=== PATIENT | male | born 1990 | race Caucasian/White ===

== ENCOUNTER 2019-08-23 14:03 | Outpatient (REF) | payer OTHER, SELFPAY ==
[2019-08-23 16:58] LABS: HCT 48.1 % (40.0-50.0); HGB 16.1 g/dL (13.5-17.5); Mean Corp. HGB Concentration 33.5 g/dL (32.0-36.0); Mean Corpuscular Hemoglobin 28.8 pg (27.0-33.0); Mean Corpuscular Volume 85.9 fL (80-95); Mean Platelet Volume 10.7 fL (8.0-11.0); Platelet Count 325 x1000/uL (130-400); RBC Distribution Width 13.8 % (11.8-14.1); White Blood Cell Count 13.15 k/cumm (4.4-10.8)
[2019-08-23 17:02] LABS: ALT 131 U/L (16-63); AST 73 U/L (15-37); Albumin 4.2 g/dL (3.4-5.0); Alkaline Phosphatase 115 U/L (46-116); Anion Gap 7.1 mmol/L (3-11); BUN 13 mg/dL (7-18); Bilirubin, Total 0.5 mg/dL (0.2-1.0); CO2 29.9 mmol/L (21.0-32.0); CREATININE 1.43 mg/dL (0.70-1.30); Calcium 9.5 mg/dL (8.5-10.1); Chloride 100 mmol/L (98-107); Estimated GFR 58.07 (mL/min/1.73m2); Glucose 93 mg/dL (74-106); Potassium 4.3 mmol/L (3.5-5.1); Sodium 137 mmol/L (136-145)
== END 2019-08-23 14:23 ==
LOC: NCHCN 14:03
PROVIDERS: Visit Provider Family Medicine
DX: K76.0 Fatty (change of) liver, not elsewhere classified (principal)
CPT/HCPCS: 80053; 85027

== ENCOUNTER 2019-10-14 07:42 | Outpatient (CLI) | payer OTHER, SELFPAY ==
[2019-10-16 19:02] LABS: COVID-19 RT-PCR Result Negative ((See Note))
== END 2019-10-14 08:02 ==
PROVIDERS: PCP Family Medicine; Visit Provider Surgery
DX: Z11.59 Encounter for screening for other viral diseases (principal); Z01.818 Encounter for other preprocedural examination
CPT/HCPCS: U0003

== ENCOUNTER 2019-10-19 06:06 | Day surgery (SDC) | payer OTHER, SELFPAY ==
[2019-10-19] VITALS (12 sets, daily range): BP systolic 53–129; BP diastolic 17–86; PULSE 69–95; RESP 16–30; TEMP 36.3–36.6; O2SAT 89–100
--- NOTE | 2019-10-19 06:27 | ROE_ITS ---
Date of service: 10/19/19 Time of Service: : Operative Note Operative Note DATE OF PROCEDURE: 10/19/19 PRE-OP DIAGNOSIS: Left inguinal hernia POST-OP DIAGNOSIS: same (Direct left inguinal hernia) PROCEDURE: Left inguinal hernia repair with mesh SURGEON: Debbie Caldwell LAY OUT FORMER: Tomasa Glynn ANESTHESIA: GETA and regional ESTIMATED BLOOD LOSS: 25 PATHOLOGY: none sent COMPLICATIONS: None Patient was transported to: PACU Patient's condition: stable Implants: BARD Mesh: LOT [id number] REF [id number] EXP 2023-06-21 Indications: Curly is a 29 year old male seen today for a left inguinal hernia. He has a history of Mirza and is being referred to [facility]. He tells me that he has had mildly elevated LFTs for a while now. His hernia is starting to bother him especially when he walks for long periods of time. We discussed the anatomy of hernias as well as the repair. We went over pain control with Tylenol, ibuprofen and a nerve block. Hopefully we will not have to give him any narcotics. I explained to him that my expectation is that he will not need any pain medications but we will see how he does after surgery. With his Mirza we have to be careful about how much Tylenol he takes. Would recommend he not take more than 3 g in a 24-hour period Findings: Direct inguinal hernia and cord lipoma Procedure Description: After informed consent was obtained the patient was taken to the operating room and placed in a supine position. Monitors and SCDs were applied and a timeout was done. The patient's name, date of , procedure type, procedure site, allergies to medications, preoperative antibiotic, and DVT prophylaxis were all reviewed. Fire risk was assessed. Next anesthesia did a tap block on the left side under ultrasound guidance. Please see their separate dictation. Once anesthesia was done the abdomen was prepped and draped in a sterile surgical fashion. 1% lidocaine was injected into the dermis in the left lower quadrant. An incision was made with a 10 blade in the left lower quadrant. Dissection was done with cautery through the subcutaneous tissues and Lianna's fascia down to the external oblique fascia. The external ring was identified and the external oblique fascia was opened sharply through the external ring. The cut fascia was grasped with hemostats the cord structures were identified and a [place] drain was placed around them. The cremasteric muscle was dissected away from the cord structures using both cautery and blunt dissection. A cord lipoma was identified and removed from the cord structures using blunt dissection and removed. The ileoinguinal nerve was identified and cut. A 3 x 6 piece of mesh was then cut to size and attached to the arcuate ligament using a 2-0 Prolene double armed suture. The mesh was secured laterally and medially with a 2-0 Prolene, with a running suture. The tails of the mesh were wrapped around the cord structures effectively cinching down the internal ring. Once the mesh was secured the tissues were irrigated with some normal saline. No bleeding was identified. The external oblique fascia was re- approximated using 2-0 Vicryl running suture. The Lianna's fascia was re- approximated using interrupted 3-0 Vicryl. The dermis was re-approximated with a running 4-0 Vicryl. The skin was cleaned and dried and skin affix was applied. The patient was woken up and taken back to recovery in stable condition. There were no immediate complications. Sponge, instrument and needle counts were correct at the end of the case x2.
--- NOTE | 2019-10-19 06:30 | PDOC.DSDIS_ITS ---
Discharge Plan Disposition Patient Disposition: HOME Condition: Good Discharge Details Reason For Visit: Left inguinal hernia Attending Provider: Debbie Caldwell Primary Care Provider: Robi Guevara Home Meds and New Rx's Prescriptions: New ibuprofen 600 mg tablet 600 mg PO Q6H PRNQty: 30 RF: 0 acetaminophen [Tylenol] 325 mg tablet 650 mg PO Q6H PRNQty: 30 RF: 0 Continued Vyvanse 40 mg capsule 40 mg PO DAILY RF: 0 melatonin 10 mg capsule 20 mg PO HS PRNRF: 0 pantoprazole [Protonix] 20 mg tablet,delayed release (DR/EC) 20 mg PO DAILY RF: 0 lisinopril-hydrochlorothiazide 10-12.5 mg tablet 1 tab PO DAILY RF: 0 Discharge Instructions Instructions: Inguinal Hernia Repair (DC) Additional Instructions: Activity at Home after surgery: 1. Make sure you walk outside at least 4 times per day 2. You should be able to climb a flight of stairs 3. No driving while in pain or taking pain medications 4. No strenuous activity or heavy lifting for 4 weeks (open surgery) Diet, Nutrition, & wound healin. Avoid alcohol until after you are recovered from your surgery 2. Make sure to eat plenty of lean protein (meat, fish, eggs, cottage cheese, beans) 3. Eat a variety of fruits and vegetables. Eat plenty of high fiber foods to avoid constipation. 4. Drink plenty of liquids to stay hydrated and avoid constipation Pain Medications: 1. Alternate Tylenol 1000 mg and Ibuprofen 600 mg every 3 hours 2. If a narcotic has been prescribed take as directed only for breakthrough pain For Constipation: 1. Take Milk of Magnesia or MiraLax as needed for constipation Other: 1. You may shower daily. Do not scrub the incisions 2. Do not soak the incisions for 1 week 3. You may alternate ice and heat as needed for pain and swelling Wound Care: 1. Keep the incisions clean and dry Other Services that may have been ordered: 0 Home Health- to help with dressing changes 0 Outpatient physical therapy Please call our office if you develop: 1. Fevers >101.5 2. Nausea or Vomiting 3. Worsening pain 4. Redness and thick discharge from the wounds If after hours please call the Hospital at and ask to speak to the on-call surgeon Referrals: Debbie Caldwell MD [ [facility] STAFF PHYSICIAN] - Activity:: no lifting >20 lb x 4 weeks Shower/Bathe:: 24 hours Diet:: As Tolerated Discharge Orders Discharge Orders: Discharge Order (Routine); Ordered 10/19/19 Ordered By: Debbie Caldwell DS: Diagnosis Discharge Diagnosis (1) Left inguinal hernia: Status: Acute
[2019-10-19] MEDS: Lactated Ringers 1,000 ML 80 ML IV ×2 (06:44→08:57)
[2019-10-19] MEDS: Bupivacaine LIPOSOME/PF 133 MG/10 ML VIAL IJ (07:33)
[2019-10-19] MEDS: Bupivacaine 0.5% Pres-Free 30 ML VIAL (07:33)
[2019-10-19] MEDS: ceFAZolin 2 GM/50 ML BAG IVPB (07:41)
[2019-10-19] MEDS: Lidocaine 1% Multi-Dose 50 ML VIAL (07:45)
[2019-10-19] MEDS: ePHEDrine 50 MG/ML VIAL IVP ×3 (08:46→08:54)
[2019-10-19] MEDS: fentaNYL 100 MCG/2 ML VIAL IVP (09:15)
[2019-10-19] MEDS: Ibuprofen 600 MG TAB PO (10:43)
[2019-10-19] MEDS: oxyCODONE 5 MG TAB PO (11:44)
== END 2019-10-19 12:30 | disposition home or self-care (01) ==
PROVIDERS: PCP Family Medicine; Visit Provider Surgery
PROC: (CPT 49505; principal; 2019-10-19 07:30)
DX: K40.90 Unilateral inguinal hernia, without obstruction or gangrene, not specified as recurrent (principal); G89.18 Other acute postprocedural pain; K75.81 Nonalcoholic steatohepatitis (NASH); D17.6 Benign lipomatous neoplasm of spermatic cord
CPT/HCPCS: 49505; 76942; C1781; J0690; J1885; J2001; J2405; J2704; J3010

== ENCOUNTER 2019-11-15 01:06 | Outpatient (CLI) | payer OTHER, SELFPAY ==
[2019-11-15 09:05] LABS: Abs Immature Grans 0.07 10^3/uL (0.0-0.06); Absolute Basophil Count 0.04 10^3/uL (0.0-0.2); Absolute Lymphocyte Count 2.01 10^3/uL (1.2-3.4); Absolute Monocyte Count 0.86 10^3/uL (0.1-0.8); Basophils % 0.3; Eosinophils % 1.3; HCT 47.3 % (40.0-50.0); HGB 16.1 g/dL (13.5-17.5); Immature Grans % 0.5; Lymphocytes % 15.7; MCH 29.2 pg (27.0-33.0); MCV 85.7 fL (80-95); Monocytes % 6.7; Neutrophils % 75.5; Nucleated RBC 0 %; Platelet Count 407 10^3/uL (130-400); RBC 5.52 10^6/uL (4.36-5.78); RDW 13.3 % (11.8-14.1); RDW-SD 41.2 fL; WBC 12.78 10^3/uL (4.4-10.8)
[2019-11-15 09:07] LABS: Absolute Eosinophil Count 0.17 10^3/uL (0.0-0.7); Absolute Neutrophil Count 9.65 10^3/uL (1.2-6.7)
[2019-11-15 09:34] LABS: ALT 109 U/L (16-63); AST 55 U/L (15-37); Albumin 3.8 g/dL (3.4-5.0); Alkaline Phosphatase 126 U/L (46-116); Anion Gap 6.4 mmol/L (3-11); BUN 14 mg/dL (7-18); Bilirubin, Total 0.5 mg/dL (0.2-1.0); CO2 31.6 mmol/L (21.0-32.0); CREATININE 1.19 mg/dL (0.70-1.30); Calcium 8.6 mg/dL (8.5-10.1); Chloride 101 mmol/L (98-107); Glucose 119 mg/dL (74-106); Potassium 3.8 mmol/L (3.5-5.1); Sodium 139 mmol/L (136-145); Total Protein 7.8 g/dL (6.4-8.2)
[2019-11-15] MEDS: Normal Saline - Diluent 50 ML VIAL IV (10:36)
[2019-11-15] MEDS: Omnipaque 350 MG/ML 100 ML BTL IJ (10:37)
[2019-11-15] MEDS: Omnipaque 350 MG/ML 50 ML BTL IJ (10:37)
--- NOTE | 2019-11-15 10:38 | DI.CT_ITS ---
EXAM: CT ABDOMEN PELVIS W CLINICAL HISTORY: H/O APPENDICEAL CARCINOID.S/P APPENDECTOMY.RESTAGING EXAM,[id number] TECHNIQUE: Imaging Protocol: Axial computed tomography images with coronal and sagittal reformatted images were created and reviewed CONTRAST MATERIAL: Intravenous: Omnipaque 350 Contrast volume:100 mL Oral: Yes COMPARISON: CT ABD PELVIS WITH CONTRAST from 03/04/2017 CT ABD PELVIS WITH CONTRAST from 03/04/2017 FINDINGS: ABDOMEN: Lung Bases: There is a stable 0.7 cm left lower lobe nodule. Liver: Diffuse fatty infiltration of the liver. No measurable mass. Portal, Superior Mesenteric, and Splenic Veins: Unremarkable. Gallbladder and Biliary Tract: Status post cholecystectomy. No biliary ductal dilatation. Pancreas: Normal density, no abnormal calcifications or inflammatory process. Spleen: Normal. Adrenals: No masses seen. Kidneys: Normal size, contour and axis. 3 mm nonobstructing stone in the midpole of the left kidney. No masses seen. Abdominal Aorta: Abdominal portion non-dilated. Bowel: No obstruction or bowel wall thickening. Status post appendectomy. Peritoneal Cavity: No ascites, collection or mesenteric inflammatory response. Lymph Nodes: No abdominal or pelvic adenopathy. Bones: Unremarkable. Soft Tissues: Soft tissue thickening and subcutaneous infiltrative changes in the left inguinal regio n which may reflect prior inguinal hernia repair. Please correlate with patient's surgical history. PELVIS: Bladder: Symmetric distention, no gross wall thickening. Reproductive Organs: Unremarkable as visualized. Lymph Nodes: Within normal limits. Bones: Within normal limits. IMPRESSION: No evidence of recurrent or metastatic disease RADIATION DOSE DELIVERED: 2,225.23mGy.cm Total DLP DATA REPOSITORY: All CT scans at this facility are submitted to the National Radiology Data Registry (NRDR) Dose Index Registry (DIR) with the [employer] (ACR). RADIATION OPTIMIZATION: All CT scans at this facility use at least one of these dose optimization te chniques: automated exposure control; mA and/or kV adjustment per patient size (includes targeted exa ms where dose is matched to clinical indication); or iterative reconstruction.
[2019-11-17 11:41] LABS: Chromogranin A 72 ng/mL (<93)
== END 2019-11-15 01:26 ==
PROVIDERS: PCP Family Medicine; Visit Provider Internal Medicine Hematology & Oncology
DX: C7A.020 Malignant carcinoid tumor of the appendix (principal)
CPT/HCPCS: 80053; 74177; 85025; 86316; J3490; Q9967

== ENCOUNTER 2019-12-16 07:29 | Outpatient (REF) | payer OTHER, SELFPAY ==
[2019-12-17 12:45] LABS: COVID-19 RT-PCR Result NEGATIVE (Negative)
== END 2019-12-16 07:49 ==
LOC: LBO 07:29
PROVIDERS: PCP Family Medicine; Visit Provider Nurse Practitioner Family
DX: Z11.59 Encounter for screening for other viral diseases (principal)
CPT/HCPCS: U0003

== ENCOUNTER 2020-01-02 16:27 | Outpatient (REF) | payer OTHER, SELFPAY ==
[2020-01-07 14:26] LABS: Patient Race White; SARS-CoV-2 RNA Undetected (Undetected); SARS-CoV-2 Specimen Source Nasal
== END 2020-01-02 16:47 ==
LOC: LBO 16:27
PROVIDERS: PCP Family Medicine; Visit Provider Nurse Practitioner Family
DX: Z11.59 Encounter for screening for other viral diseases (principal)
CPT/HCPCS: U0003

== ENCOUNTER 2020-09-04 10:37 | Emergency (ER) | payer OTHER, SELFPAY ==
[2020-09-04 10:52] VITALS: BP 143/99; PULSE 87; RESP 20; TEMP 36.5; O2SAT 98
[2020-09-04] MEDS: Lactated Ringers 1,000 ML 1000 ML IV (11:10)
[2020-09-04 11:32] LABS: Abs Immature Grans 0.05 10^3/uL (0.0-0.06); Absolute Basophil Count 0.01 10^3/uL (0.0-0.2); Absolute Lymphocyte Count 0.94 10^3/uL (1.2-3.4); Absolute Monocyte Count 0.68 10^3/uL (0.1-0.8); Absolute Neutrophil Count 11.33 10^3/uL (1.2-6.7); Basophils % 0.1; HCT 48.2 % (40.0-50.0); HGB 16.3 g/dL (13.5-17.5); Immature Grans % 0.4; Lymphocytes % 7.2; MCH 29.2 pg (27.0-33.0); MCHC 33.8 % (32.0-36.0); MCV 86.4 fL (80-95); MPV 9.9 fL (8.0-11.0); Monocytes % 5.2; Neutrophils % 87.1; Nucleated RBC 0 %; Platelet Count 317 10^3/uL (130-400); RBC 5.58 10^6/uL (4.36-5.78); RDW 12.7 % (11.8-14.1); RDW-SD 39.8 fL; WBC 13.01 10^3/uL (4.4-10.8)
--- NOTE | 2020-09-04 11:42 | ED.GENADUL_ITS ---
Discharge Plan Disposition Patient Disposition: HOME Discharge Details Clinical Impression: Nausea & vomiting, Gastroparesis Primary Care Provider: Robi Guevara ED Provider: Prakash Davis Home Meds and New Rx's Prescriptions: New metoclopramide HCl [Reglan] 10 mg tablet 10 mg PO Q6H PRN (Reason: nausea and vomiting) Qty: 15 RF: 0 Continued Vyvanse 40 mg capsule 40 mg PO DAILY RF: 0 pantoprazole [Protonix] 20 mg tablet,delayed release (DR/EC) 20 mg PO DAILY RF: 0 lisinopril-hydrochlorothiazide 10-12.5 mg tablet 1 tab PO DAILY RF: 0 fluoxetine 10 mg capsule 10 mg PO DAILY RF: 0 Discharge Instructions Instructions: Acute Nausea and Vomiting (ED), Gastroparesis (ED) Additional Instructions: Please maintain a clear liquid diet today. Advance your diet slowly tomorrow to bland foods. Take Reglan as prescribed only for severe nausea. Please contact your primary care physician to arrange follow-up. Return to the ER for any worsening or new concerning symptoms. Referrals: Robi Guevara [Primary Care Provider] - Discharge Data Discharge Date/Time-TO BE ENTERED AT DEPARTURE: 09/04/20 13:59 Medical Decision Making 30-year-old male with history of gastroparesis and IBS presents with nausea and vomiting since yesterday. Unable to keep anything down. Consider electrolyte abnormalities and pancreatitis. Labs reviewed: Leukocytosis noted. Potassium is slightly low at 3.4. I will give potassium chloride 20 mEq. And patient was given LR 1 L fluid bolus and Reglan 10 mg IV and reassessed and noted to be feeling much better. Patient tolerating p.o. fluids. Plan for outpatient follow-up with PCP. I will prescribe Reglan for nausea. Disposition decision was made weighing the risks and benefits of hospitalization versus outpatient treatment, the risk for further decompensation, and the patient's wishes. The patient was stable and requested discharge. Prior to discharge, my usual and customary return precautions were reviewed with the patient - this included follow-up instructions and reason to return to the emergency department if condition worsens, does not improve as expected, or other new concerns arise. HPI General Mode of arrival: ambulatory . Date/Time Provider Initiated Documentation: 09/04/20 10:58 . Limitations to Documentation: no limitations . Information obtained by: patient . HPI Narrative: 30-year-old male with history of gastroparesis and IBS presents with nausea and vomiting since yesterday. Symptoms are severe. Constant. Unable to keep anything down. No associated abdominal pain. No associated fever. Symptoms consistent with prior episodes of gastroparesis. Notes Jerolina has worked in the past. Related Data Home Medications Medication Instructions Recorded Confirmed lisdexamfetamine 40 mg capsule 40 mg PO DAILY 09/20/19 09/04/20 lisinopril 10 1 tab PO DAILY 09/20/19 09/04/20 mg-hydrochlorothiazide 12.5 mg tablet pantoprazole 20 mg tablet,delayed 20 mg PO DAILY 09/20/19 09/04/20 release fluoxetine 10 mg PO DAILY 09/04/20 09/04/20 metoclopramide HCl [Reglan] 10 mg PO Q6H PRN #15 tab 09/04/20 Previous Rx's Medication Instructions Recorded metoclopramide HCl [Reglan] 10 mg PO Q6H PRN #15 tab 09/04/20 Allergies Allergy/AdvReac Type Severity Reaction Status Date / Time metoprolol AdvReac Severe severe Verified 09/04/20 10:55 body aches ondansetron HCl AdvReac Severe Nausea Verified 09/04/20 10:55 [From Zofran (as hydrochloride)] emtricitabine [From Truvada] AdvReac Intermediate N/V x2 Verified 09/04/20 10:55 days; migraine hydrocodone bitartrate AdvReac Intermediate Nausea Verified 09/04/20 10:55 [From Vicodin] oxycodone HCl [From Percocet] AdvReac Intermediate Nausea Verified 09/04/20 10:55 tenofovir [From Truvada] AdvReac Intermediate N/V x2 Verified 09/04/20 10:55 days; migraine General Stated Complaint: Nausea/Vomit/Diar AILYN: 3 Review of Systems Constitutional Constitutional: Denies fever(s) Gastrointestinal Gastrointestinal: Reports as per [facility] Medical History (Updated 09/04/20 @ 13:45 by Prakash Davis MD) ADHD 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 Cameron Carpal tunnel syndrome on both sides (10/03/15) s/p b/l release which resolved issue Depression with anxiety Long history; Fluoxetine; Wellbutrin (helpful 2012), Buspar; episodes of panice with Clonazepam RX'ed long-term historically and uses very seldom per medical records Gastroparesis RX Metoclopremide Heartburn Long-term Pantoprazole, switched to safer H2 rishabh 03/2019 Hypertension Lisinopril 10mg (used to also be on Chlorthalidone 50mg daily) IBS (irritable bowel syndrome) Dx'ed ~2011; Colestid helpful for diarrhea; Levsin & Bentyl used 2014 Left inguinal hernia Migraine without aura and without status migrainosus, not intractable (10/03/15) Nonalcoholic fatty liver disease LIZBETH (obstructive sleep apnea) ran out of supplies for CPAP Renal insufficiency Shingles Surgical History (Updated 11/01/19 @ 09:11 by Debbie Caldwell MD) H/O carpal tunnel repair (~02/2015) B/L H/O esophagogastroduodenoscopy (~02/2013) +Mild gastritis, normal mucosa History of appendectomy (~06/2014) Open History of cholecystectomy (~02/2007) History of colonoscopy (~02/2013) ~2013--normal mucosa, but +internal hemorrhoids History of colonoscopy (~10/2017) Dr. Alva in [place]--recalled for age 49; normal appearing mucosa all biopsies (random) benign History of tonsillectomy (~02/2012) S/P inguinal hernia repair using synthetic patch (~10/19/19) left Family History Father , Black lung on certificate; also with significant addiction Substance abuse Anxiety Depression Hypertension Paternal Grandfather Diabetes Alcohol abuse Mother Anxiety Depression Hypertension Maternal Grandfather Alcohol abuse Maternal Grandmother Alcohol abuse Heart disease Pancreatic cancer Paternal Grandmother Alcohol abuse Social History Smoking/Tobacco Use Status: Never Smoking risk assessment performed?: Yes Alcohol Intake: current Alcohol Intake frequency: holidays/special occasions only Drug use: Never Substance use type: does not use Adopted: No Caregiver/Support person: No Foster care: No Household members: family Housing: house Communication Needs: None Do you need help understanding health information?: Rarely 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, [employer] Sexually active: Yes Do you think of yourself as: lesbian/ibarra/homosexual Current gender identity: male What type of physical activity do you participate in: walking Frequency: daily Seatbelt use: always Drive intox or ride w/intox driver/sales workers: No Working smoke detector in home: Yes Fire extinguisher in home: Yes Firearms in home: No Do you feel safe at home: Yes Do you feel safe in your relationship?: Yes Exam Const General: cooperative and no acute distress HENMT Mouth: mucous membranes dry Eyes Conjunctivae: normal conjunctivae Sclera: normal sclerae Resp Auscultation: clear to auscultation bilaterally, no rales, no rhonchi and no wheezes Cardio Rate: regular rate and not tachycardic Rhythm: regular rhythm GI Palpation: soft, not firm, no guarding, no masses, not rigid and nontender Skin General skin exam: no pallor Neuro General: patient alert, patient awake, patient oriented x3 and tone normal Extrem General: no edema Psych Appearance: grossly normal Mental Status: mental status grossly normal Course Vital Signs Vital signs: Vital Signs Temperature 36.5 C 09/04/20 10:52 Pulse 87 09/04/20 10:52 Respiratory Rate 20 09/04/20 10:52 Blood Pressure 143/99 H 09/04/20 10:52 Pulse Oximetry 98 09/04/20 10:52 Temperature 36.5 C 09/04/20 10:52 Temperature Source Tympanic 09/04/20 10:52 Pulse 87 09/04/20 10:52 Respiratory Rate 20 09/04/20 10:52 Respiratory Effort Non-Labored 09/04/20 11:20 Blood Pressure 143/99 H 09/04/20 10:52 Blood Pressure Position Sitting 09/04/20 10:52 Pulse Oximetry 98 09/04/20 10:52 Oxygen Delivery Method Room Air 09/04/20 10:52 Oxygen Flow Rate 0 09/04/20 10:52 Pain Level 4 09/04/20 10:52 Lab/Test Results Lab/Test Results: Laboratory Tests Range/Units 09/04/20 11:15 WBC (4.4-10.8) 10^3/uL 13.01 H RBC (4.36-5.78) 10^6/uL 5.58 Hgb (13.5-17.5) g/dL 16.3 Hct (40.0-50.0) % 48.2 MCV (80-95) fL 86.4 MCH (27.0-33.0) pg 29.2 MCHC (32.0-36.0) % 33.8 RDW (11.8-14.1) % 12.7 Plt Count (130-400) 10^3/uL 317 MPV (8.0-11.0) fL 9.9 Immature Gran % 0.4 Neutrophils % 87.1 Lymphocytes % 7.2 Monocytes % 5.2 Eosinophils % 0.0 Basophils % 0.1 Nucleated RBC % % 0 Absolute Neutrophils (1.2-6.7) 10^3/uL 11.33 H Absolute Lymphocytes (1.2-3.4) 10^3/uL 0.94 L Absolute Monocytes (0.1-0.8) 10^3/uL 0.68 Absolute Eosinophils (0.0-0.7) 10^3/uL 0.00 Absolute Basophils (0.0-0.2) 10^3/uL 0.01
[2020-09-04 11:46] LABS: ALT 56 U/L (16-63); AST 34 U/L (15-37); Albumin 3.9 g/dL (3.4-5.0); Alkaline Phosphatase 122 U/L (46-116); Anion Gap 8.3 mmol/L (3-11); BUN 14 mg/dL (7-18); Bilirubin, Total 1.5 mg/dL (0.2-1.0); CO2 30.7 mmol/L (21.0-32.0); CREATININE 1.2 mg/dL (0.70-1.30); Calcium 8.9 mg/dL (8.5-10.1); Chloride 100 mmol/L (98-107); Glucose 101 mg/dL (74-106); Lipase 36 U/L (73-393); Magnesium 1.9 mg/dL (1.8-2.4); Potassium 3.4 mmol/L (3.5-5.1); Sodium 139 mmol/L (136-145); Total Protein 7.8 g/dL (6.4-8.2)
[2020-09-04] MEDS: Metoclopramide 10 MG/2 ML VIAL IVP (11:53)
[2020-09-04 12:32] VITALS: BP 136/86; PULSE 79; RESP 16; TEMP 36.7; O2SAT 98
[2020-09-04 13:33] VITALS: BP 121/83; PULSE 88; RESP 14; TEMP 36.6; O2SAT 99
[2020-09-04] MEDS: Potassium Chloride 20 MEQ TABCR PO (13:53)
[2020-09-04 13:57] VITALS: BP 121/83; PULSE 88; RESP 14; TEMP 36.6; O2SAT 99
== END 2020-09-04 13:59 | disposition home or self-care (01) ==
PROVIDERS: Emergency Provider Student in an Organized Health Care Education/Training Program; PCP Family Medicine
DX: K31.84 Gastroparesis (principal); R11.2 Nausea with vomiting, unspecified; E87.6 Hypokalemia
CPT/HCPCS: 36415; 80053; 83690; 96361; 96374; 99284; 83735; 85025; J2765

== ENCOUNTER 2020-12-18 00:22 | Outpatient (CLI) | payer OTHER, SELFPAY ==
[2020-12-18 08:07] LABS: Abs Immature Grans 0.05 10^3/uL (0.0-0.06); Absolute Basophil Count 0.05 10^3/uL (0.0-0.2); Absolute Lymphocyte Count 1.31 10^3/uL (1.2-3.4); Basophils % 0.4; Eosinophils % 0.8; HCT 44.5 % (40.0-50.0); HGB 14.7 g/dL (13.5-17.5); Immature Grans % 0.4; Lymphocytes % 9.9; MCH 29.3 pg (27.0-33.0); MCV 88.8 fL (80-95); MPV 9.7 fL (8.0-11.0); Monocytes % 5.8; Neutrophils % 82.7; Nucleated RBC 0 %; Platelet Count 333 10^3/uL (130-400); RBC 5.01 10^6/uL (4.36-5.78); RDW 12.6 % (11.8-14.1); WBC 13.19 10^3/uL (4.4-10.8)
[2020-12-18 08:12] LABS: Absolute Eosinophil Count 0.11 10^3/uL (0.0-0.7); Absolute Monocyte Count 0.77 10^3/uL (0.1-0.8); Absolute Neutrophil Count 10.91 10^3/uL (1.2-6.7)
[2020-12-18] MEDS: Breeza Beverage 473 ML BTL PO (08:17)
[2020-12-18] MEDS: Omnipaque 350 MG/ML 50 ML BTL IJ (08:18)
[2020-12-18 08:22] LABS: ALT 45 U/L (16-63); AST 17 U/L (15-37); Albumin 3.7 g/dL (3.4-5.0); Alkaline Phosphatase 100 U/L (46-116); Anion Gap 5.7 mmol/L (3-11); BUN 12 mg/dL (7-18); Bilirubin, Total 0.6 mg/dL (0.2-1.0); CO2 31.3 mmol/L (21.0-32.0); CREATININE 1.1 mg/dL (0.70-1.30); Calcium 8.5 mg/dL (8.5-10.1); Chloride 103 mmol/L (98-107); Glucose 107 mg/dL (74-106); Potassium 3.6 mmol/L (3.5-5.1); Sodium 140 mmol/L (136-145)
[2020-12-18] MEDS: Omnipaque 350 MG/ML 100 ML BTL IJ (09:12)
[2020-12-18] MEDS: Normal Saline - Diluent 50 ML VIAL IV (09:12)
--- NOTE | 2020-12-18 09:16 | DI.CT_ITS ---
Exam(s) CT ABDOMEN PELVIS W EXAM: CT ABDOMEN PELVIS W CLINICAL HISTORY: H/O CARCINOID TUMOR APPENDIX,C7A,020,S/P RT HEMICOLECTOMY,RESTAGING EXAM. TECHNIQUE: Imaging Protocol: Axial computed tomography images with coronal and sagittal reformatted images were created and reviewed CONTRAST MATERIAL: Intravenous: Omnipaque 350 Contrast volume:100 ml Oral: yes COMPARISON: CT CHEST ABD PELVIS WITH CONTRAST from 09/03/[address] ABDOMEN PELVIS W from 11/15/2019 FINDINGS: ABDOMEN: Lung Bases: Stable small nodules, 4 and 6 millimeters. No new nodules. Liver: Stable fatty infiltration.. No measurable mass. Gallbladder and biliary tract: Status post cholecystectomy. No radiodense calculus or dilation. Pancreas: Normal density, no abnormal calcifications or inflammatory process. Spleen: Normal. Kidneys: Normal size, contour and axis. Nonobstructing stone mid left kidney. No obstructive uropat hy. No masses seen. Adrenal glands: No masses seen. Abdominal Aorta: Abdominal portion non-dilated. PELVIS: Bladder: No gross wall thickening. No calculi.No focal mass. Bowel: No obstruction or bowel wall thickening. Status post appendectomy. Peritoneal cavity: No ascites, collection or mesenteric inflammatory response. Bones: Within normal limits for age. Reproductive organs: Within normal limits. Lymph nodes: Stable size small mesenteric lymph nodes, less than a centimeter in size. Fat in both inguinal canals. Stable mild stranding left inguinal region. Impression: Status post appendectomy. No evidence adenopathy or metastatic disease. Stable left lower lobe nodule s. Nonobstructing stone mid left kidney. RADIATION DOSE DELIVERED: 1,628.63mGy.cm Total DLP DATA REPOSITORY: All CT scans at this facility are submitted to the National Radiology Data Registry (NRDR) Dose Index Registry (DIR) with the [employer] (ACR). RADIATION OPTIMIZATION: All CT scans at this facility use at least one of these dose optimization te chniques: automated exposure control; mA and/or kV adjustment per patient size (includes targeted exa ms where dose is matched to clinical indication); or iterative reconstruction.
[2020-12-19 15:10] LABS: Chromogranin A 94 ng/mL (<93)
== END 2020-12-18 00:42 ==
PROVIDERS: PCP Family Medicine; Visit Provider Internal Medicine Hematology & Oncology
DX: C7A.020 Malignant carcinoid tumor of the appendix (principal); N20.0 Calculus of kidney
CPT/HCPCS: 80053; 74177; 85025; 86316; J3490; Q9967

== ENCOUNTER 2021-01-10 09:18 | Outpatient (RCR) | payer OTHER, SELFPAY ==
[2021-01-11 16:43] LABS: Chromogranin A 59 ng/mL (<93)
== END 2021-01-22 23:59 | disposition home or self-care (01) ==
LOC: INF 09:18
PROVIDERS: PCP Family Medicine; Visit Provider Internal Medicine Hematology & Oncology
DX: C7A.020 Malignant carcinoid tumor of the appendix (principal)
CPT/HCPCS: 36415; 86316

== ENCOUNTER 2021-02-26 17:05 | Outpatient (REF) | payer OTHER, SELFPAY ==
[2021-02-27 09:06] LABS: HBs Antibody, Quant 802.6 mIU/mL (See Note); Hepatitis B Surface Ab Positive (See Note)
[2021-02-27 09:46] LABS: Hepatitis C Ab w Rflx HCV PCR Negative (Negative)
[2021-02-27 09:54] LABS: HIV-1/2 Ag & Ab Screen Negative (Negative)
[2021-02-27 11:35] LABS: Syphilis Serology (RPR) Negative (Negative)
[2021-02-27 11:47] LABS: Hep A Total Ab w Rflx IgM Negative (Negative)
[2021-02-27 15:47] LABS: Chlamydia Result Negative (Negative); GC Result Negative (Negative)
== END 2021-02-26 17:06 | disposition home or self-care (01) ==
LOC: NCHCN 17:05
PROVIDERS: PCP Family Medicine; Visit Provider Nurse Practitioner Gerontology
DX: Z11.3 Encounter for screening for infections with a predominantly sexual mode of transmission (principal); Z11.59 Encounter for screening for other viral diseases; Z11.4 Encounter for screening for human immunodeficiency virus [HIV]
CPT/HCPCS: 86706; 86709; 86803; 87389; 87491; 87591; 86592

== ENCOUNTER 2021-04-30 04:23 | Outpatient (CLI) | payer OTHER, SELFPAY ==
[2021-04-30 14:34] LABS: Anion Gap 12.5 mmol/L (3-11); BUN 11 mg/dL (7-18); CO2 29.5 mmol/L (21.0-32.0); CREATININE 1.2 mg/dL (0.70-1.30); Calcium 9.6 mg/dL (8.5-10.1); Chloride 98 mmol/L (98-107); Glucose 91 mg/dL (74-106); Potassium 4.3 mmol/L (3.5-5.1); Sodium 140 mmol/L (136-145)
[2021-05-02 10:13] LABS: Hepatitis B Surface Ag Negative (Negative)
== END 2021-04-30 04:24 | disposition home or self-care (01) ==
LOC: LBO 04:23
PROVIDERS: PCP Family Medicine; Visit Provider Nurse Practitioner Gerontology
DX: Z20.6 Contact with and (suspected) exposure to human immunodeficiency virus [HIV] (principal)
CPT/HCPCS: 36415; 80048; 80053; 80061; 87340

== ENCOUNTER 2021-05-04 13:22 | Emergency (ER) | payer OTHER, SELFPAY ==
[2021-05-04 13:24] VITALS: BP 142/94; PULSE 84; RESP 18; TEMP 36.6; O2SAT 97
--- NOTE | 2021-05-04 14:12 | ED.GENADUL_ITS ---
Discharge Plan Disposition Patient Disposition: HOME Condition: Stable Discharge Details Clinical Impression: Shingles Primary Care Provider: Robi Guevara ED Provider: Jessica Zavaleta Home Meds and New Rx's Prescriptions: New valacyclovir [Valtrex] 1 gram tablet 1,000 mg PO Q8H Qty: 21 0RF prednisone 20 mg tablet 40 mg PO DAILY Qty: 6 0RF prochlorperazine maleate [Compazine] 10 mg tablet 10 mg PO Q6H PRNQty: 10 0RF Rx Instructions: NEEDED FOR HEADACHES Continued Vyvanse 40 mg capsule 50 mg PO DAILY 0RF lisinopril-hydrochlorothiazide 10-12.5 mg tablet 1 tab PO DAILY 0RF fluoxetine 10 mg capsule 10 mg PO DAILY 0RF metoclopramide HCl [Reglan] 10 mg tablet 10 mg PO Q6H PRN (Reason: nausea and vomiting) Qty: 15 0RF Discharge Instructions Instructions: Shingles (ED) Additional Instructions: 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 Worsening eye pain, fever, chills, difficulty swallowing, or with any new or progressing symptoms Stand Alone Forms: Work Release Referrals: Robi Guevara [Primary Care Provider] - Discharge Data Discharge Date/Time-TO BE ENTERED AT DEPARTURE: 05/04/21 14:26 Medical Decision Making Patient appears well, there is no evidence of allergic reaction I suspect he has shingles left side of his face There is no evidence of ophthalmic involvement, I did instill tetracaine and stained eye with fluorescein for dendrite, there was no obvious injury Take on prednisone for discomfort and Valtrex for shingles Given a work note and instructed not to work return to work until his lesions crusted over He will talk to his doctor about Truvada and whether or not of the medication he should continue Discharged home without any evidence of allergic reaction alert, oriented, of decisional capacity Medical Records Medical records reviewed: Yes I reviewed the patient's medical records. HPI General Date/Time Provider Initiated Documentation: 05/04/21 13:23 . HPI Narrative: This 30-year-old male presents with report of rash that started this morning. Patient took a dose of Truvada last evening and is wondering if this rash is an allergic reaction. He also has pain behind his left eye which he is attributing to migraine headache. He has pain in his jaw as well. He denies any difficulty swallowing or chest pain associated. He denies any fever or chills. He does report some paresthesias to the left side tongue. Denies any vision change. Denies any contact lens use. Denies history of glaucoma. Related Data Home Medications Medication Instructions Recorded Confirmed lisdexamfetamine 40 mg capsule 50 mg PO DAILY 09/20/19 05/04/21 (Vyvanse) lisinopril 10 1 tab PO DAILY 09/20/19 05/04/21 mg-hydrochlorothiazide 12.5 mg tablet fluoxetine 10 mg capsule 10 mg PO DAILY 09/04/20 05/04/21 metoclopramide HCl 10 mg tablet 10 mg PO Q6H PRN #15 tab 09/04/20 05/04/21 (Reglan) prednisone 20 mg tablet 40 mg PO DAILY #6 tab 05/04/21 prochlorperazine maleate 10 mg 10 mg PO Q6H PRN #10 tab 05/04/21 tablet (Compazine) valacyclovir 1 gram tablet 1,000 mg PO Q8H #21 tab 05/04/21 (Valtrex) Previous Rx's Medication Instructions Recorded metoclopramide HCl 10 mg tablet 10 mg PO Q6H PRN #15 tab 09/04/20 (Reglan) prednisone 20 mg tablet 40 mg PO DAILY #6 tab 05/04/21 prochlorperazine maleate 10 mg 10 mg PO Q6H PRN #10 tab 05/04/21 tablet (Compazine) valacyclovir 1 gram tablet 1,000 mg PO Q8H #21 tab 05/04/21 (Valtrex) Allergies Allergy/AdvReac Type Severity Reaction Status Date / Time metoprolol AdvReac Severe severe Verified 05/04/21 13:37 body aches ondansetron HCl AdvReac Severe Nausea Verified 05/04/21 13:37 [From Zofran (as hydrochloride)] emtricitabine [From Truvada] AdvReac Intermediate N/V x2 Verified 05/04/21 13:37 days; migraine hydrocodone bitartrate AdvReac Intermediate Nausea Verified 05/04/21 13:37 [From Vicodin] oxycodone HCl [From Percocet] AdvReac Intermediate Nausea Verified 05/04/21 13:37 tenofovir [From Truvada] AdvReac Intermediate N/V x2 Verified 05/04/21 13:37 days; migraine General Stated Complaint: RashLesion AILYN: 3 Review of Systems All systems reviewed & are unremarkable except as noted in HPI and below PFSH All Active Problems (Updated 05/04/21 @ 14:19 by MOOSE Neal) Nausea & vomiting (Acute) Gastroparesis (Acute) Shingles (Acute) Encounter for screening for other viral diseases (Acute) Medical History (Updated 05/04/21 @ 14:19 by MOOSE Nela) ADHD 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 Cameron Carpal tunnel syndrome on both sides (10/03/15) s/p b/l release which resolved issue Depression with anxiety Long history; Fluoxetine; Wellbutrin (helpful 2012), Buspar; episodes of panice with Clonazepam RX'ed long-term historically and uses very seldom per medical records Gastroparesis RX Metoclopremide Heartburn Long-term Pantoprazole, switched to safer H2 rishabh 03/2019 Hypertension Lisinopril 10mg (used to also be on Chlorthalidone 50mg daily) IBS (irritable bowel syndrome) Dx'ed ~2011; Colestid helpful for diarrhea; Levsin & Bentyl used 2014 Left inguinal hernia Migraine without aura and without status migrainosus, not intractable (10/03/15) Nonalcoholic fatty liver disease LIZBETH (obstructive sleep apnea) ran out of supplies for CPAP Renal insufficiency Shingles Surgical History (Updated 11/01/19 @ 09:11 by Debbie Caldwell MD) H/O carpal tunnel repair (~02/2015) B/L H/O esophagogastroduodenoscopy (~02/2013) +Mild gastritis, normal mucosa History of appendectomy (~06/2014) Open History of cholecystectomy (~02/2007) History of colonoscopy (~02/2013) ~2013--normal mucosa, but +internal hemorrhoids History of colonoscopy (~10/2017) Dr. Alva in [place]--recalled for age 49; normal appearing mucosa all biopsies (random) benign History of tonsillectomy (~02/2012) S/P inguinal hernia repair using synthetic patch (~10/19/19) left Family History Father , Black lung on certificate; also with significant addiction Substance abuse Anxiety Depression Hypertension Paternal Grandfather Diabetes Alcohol abuse Mother Anxiety Depression Hypertension Maternal Grandfather Alcohol abuse Maternal Grandmother Alcohol abuse Heart disease Pancreatic cancer Paternal Grandmother Alcohol abuse Social History Smoking/Tobacco Use Status: Never Smoking risk assessment performed?: Yes Alcohol Intake: never Drug use: Never Substance use type: does not use Adopted: No Caregiver/Support person: No Foster care: No Household members: family Housing: house Communication Needs: None Do you need help understanding health information?: Rarely 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, [employer] Sexually active: Yes Do you think of yourself as: lesbian/ibarra/homosexual Current gender identity: male What type of physical activity do you participate in: walking Frequency: daily Seatbelt use: always Drive intox or ride w/intox 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: No Working smoke detector in home: Yes Fire extinguisher in home: Yes Firearms in home: No Do you feel safe at home: Yes Do you feel safe in your relationship?: Yes Exam Const General: cooperative and no acute distress HENMT Other: Rash noted to left maxillary region, no trismus, uvula midline, no intraoral lesions, maintaining secretions, oropharynx patent Eyes Sclera: sclerae normal Pupils: PERRL Other: Fluorescein stained, no dendrites, pressure of 10 left eye, no proptosis Neck Other: No stridor Resp Effort & Inspection: normal respiratory effort Auscultation: clear to auscultation bilaterally Cardio Rate: regular rate Skin Other: Rash noted to left maxillary region, vesicular, no involvement of nare or left ear Neuro General: patient alert and patient oriented x3 Course Vital Signs Vital signs: Vital Signs Temperature 36.6 C 05/04/21 13:24 Pulse 84 05/04/21 13:24 Respiratory Rate 18 05/04/21 13:24 Blood Pressure 142/94 H 05/04/21 13:24 Pulse Oximetry 97 05/04/21 13:24 Temperature 36.6 C 05/04/21 13:24 Temperature Source Temporal Artery Scan 05/04/21 13:24 Pulse 84 05/04/21 13:24 Respiratory Rate 18 05/04/21 13:24 Respiratory Effort Non-Labored 05/04/21 13:34 Blood Pressure 142/94 H 05/04/21 13:24 Blood Pressure Position Sitting 05/04/21 13:24 Pulse Oximetry 97 05/04/21 13:24 Oxygen Delivery Method Room Air 05/04/21 13:24 Oxygen Flow Rate 0 05/04/21 13:24
== END 2021-05-04 14:26 | disposition home or self-care (01) ==
PROVIDERS: Emergency Provider Physician Assistant; PCP Family Medicine
DX: B02.9 Zoster without complications (principal); H57.12 Ocular pain, left eye; R68.84 Jaw pain
CPT/HCPCS: 99283

== ENCOUNTER 2021-06-27 10:26 | Outpatient (CLI) | payer OTHER, SELFPAY ==
[2021-06-27 10:39] LABS: Source Nasal/Nares
[2021-06-27 16:35] LABS: COVID-19 PCR Negative (Negative)
== END 2021-06-27 10:27 | disposition home or self-care (01) ==
LOC: LBO 10:27
PROVIDERS: PCP Family Medicine; Visit Provider Obstetrics & Gynecology
DX: Z20.822 Contact with and (suspected) exposure to COVID-19 (principal)
CPT/HCPCS: 87635

== ENCOUNTER 2021-07-16 16:30 | Outpatient (REF) | payer OTHER, SELFPAY ==
[2021-07-17 10:43] LABS: HIV-1/2 Ag & Ab Screen Negative (Negative)
== END 2021-07-16 16:31 | disposition home or self-care (01) ==
LOC: NCHCN 16:30
PROVIDERS: PCP Family Medicine; Visit Provider Family Medicine
DX: Z00.00 Encounter for general adult medical examination without abnormal findings (principal); Z11.4 Encounter for screening for human immunodeficiency virus [HIV]
CPT/HCPCS: 87389

== ENCOUNTER 2021-09-02 17:49 | Outpatient (REF) | payer OTHER, SELFPAY ==
[2021-09-02 10:04] LABS: Source Nasal/Nares
[2021-09-02 11:18] LABS: COVID-19 PCR Negative (Negative)
== END 2021-09-02 17:50 | disposition home or self-care (01) ==
LOC: LBN 17:49
PROVIDERS: PCP Family Medicine; Visit Provider Obstetrics & Gynecology
DX: Z20.822 Contact with and (suspected) exposure to COVID-19 (principal)
CPT/HCPCS: 87635

== ENCOUNTER 2021-09-02 17:50 | Outpatient (REF) | payer OTHER, SELFPAY | END 2021-09-02 17:51 | disposition home or self-care (01) | LOC: NCHCN 17:50 | PROVIDERS: PCP Family Medicine; Visit Provider Obstetrics & Gynecology ==

== ENCOUNTER 2021-10-03 03:38 | Emergency (ER) | payer OTHER, SELFPAY ==
[2021-10-03 03:45] VITALS: BP 144/93; PULSE 105; RESP 16; TEMP 36.7; O2SAT 100
--- NOTE | 2021-10-03 03:54 | ED.GENADUL_ITS ---
Discharge Plan Disposition Patient Disposition: HOME Condition: Good Discharge Details Clinical Impression: Pain of left great toe Primary Care Provider: Robi Guevara ED Provider: Walker Bolton Home Meds and New Rx's Prescriptions: New prednisone 50 mg tablet 50 mg PO DAILY Qty: 5 0RF No Action Vyvanse 40 mg capsule 50 mg PO DAILY fluoxetine 10 mg capsule 10 mg PO DAILY metoclopramide HCl [Reglan] 10 mg tablet 10 mg PO Q6H PRN (Reason: nausea and vomiting) Qty: 15 0RF lisinopril 10 mg tablet 10 mg PO DAILY Discharge Instructions Instructions: Gout (ED) Additional Instructions: At this time your symptoms appear to be consistent with mild gout or pseudogout. Please stay off the foot for the next few days, take 800 mg of ibuprofen every 6 hours, keep the foot elevated, and apply the Voltaren gel every 6-8 hours. If you do not have any improvement of your symptoms after 24 to 36 hours, please take the steroid as prescribed. Due to the increased chance of gastric ulcers, please make sure that you are taking your home omeprazole regularly as directed. If you notice any worsening of your symptoms, or any new symptoms such as spreading redness, worsening pain or swelling in the toe, vomiting, diarrhea, fever, chills, shortness of breath, chest pain, numbness, weakness, or fainting , please return immediately to the emergency department for reevaluation. Please follow up with your primary care provider as soon as possible for reassessment and reevaluation. As always, it was a pleasure participating in your medical care today. Referrals: Robi Guevara [Primary Care Provider] - Medical Decision Making This is a 31-year-old male with a past medical history of suspected gout in his left great toe, gastroparesis, gastric ulcers, carcinoid tumor of his appendix, who presents today for evaluation of left great toe pain. Patient denies any recent trauma, fever, chills, change in diet, increase in meat or dairy products, or any other complaints. Patient states that this morning he woke up out of bed and his left great toe was notably sore. He states it feels identical to when he had his last suspected gouty attack in the past. He does admit to a family history of gout. He denies any change in activities. He does admit to stubbing the toe a week ago, but no injury recently. Pain is made worse with movement. He did take an ibuprofen before he arrived. No other complaints at this time. No other modifying factors Physical exam demonstrates a small area of swelling over the left MTP joint of the great toe. No redness, no warmth, no other edema. No other signs of lesions or abnormalities on exam. No signs of trauma. No clinical evidence of a septic joint at this time. I did discuss risks and benefits of joint aspiration, and through shared decision-making process patient is decided to hold off on aspiration at this time. With no signs of a septic joint I do not see an indication for emergent aspiration at this time. Symptoms likely secondary to gout or pseudogout. Will recommend continued NSAIDs at home, will give Voltaren gel to administer topically. With the patient's history of gastritis, I am hesitant to start a steroid. Patient did feel that the steroid was notably beneficial the last time he had an exacerbation like this. We will recommend continued NSAIDs for the time being and if he has no improvement over the next 24 to 36 hours then he can start steroid after this, the prescription will be given to him to take home. Recommend close follow-up with PCP. Discussed red flags that would represent potential symptoms for a septic joint, infection or other significant abnormality. I have extensively reviewed the treatment plan and discharge instructions with the patient. I have addressed all patient concerns at this time. The patient was made aware of what symptoms to monitor for that would warrant a return to the emergency department. Discussed the plan with the patient, they demonstrate verbal understanding and agreement with our assessment and plan at this time. The documentation in this chart was dictated using [employer] dictation software. Please excuse any dictation errors. HPI General Date/Time Provider Initiated Documentation: 10/03/21 03:40 . 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 Patient denies any recent trauma, fever, chills, change in diet, increase in meat or dairy products, or any other complaints. Patient states that this morning he woke up out of bed and his left great toe was notably sore. He states it feels identical to when he had his last suspected gouty attack in the past. He does a dmit to a family history of gout. He denies any change in activities. He does admit to stubbing the toe a week ago, but no injury recently. Pain is made worse with movement. He did take an ibuprofen before he arrived. No other complaints at this time. No other modifying factors Related Data Home Medications Medication Instructions Recorded Confirmed lisdexamfetamine 40 mg capsule 50 mg PO DAILY 09/20/19 10/03/21 (Vyvanse) fluoxetine 10 mg capsule 10 mg PO DAILY 09/04/20 10/03/21 metoclopramide HCl 10 mg tablet 10 mg PO Q6H PRN nausea and 09/04/20 10/03/21 (Reglan) vomiting #15 tabs lisinopril 10 mg tablet 10 mg PO DAILY 10/03/21 10/03/21 prednisone 50 mg tablet 50 mg PO DAILY #5 tabs 10/03/21 Previous Rx's Medication Instructions Recorded metoclopramide HCl 10 mg tablet 10 mg PO Q6H PRN nausea and 09/04/20 (Reglan) vomiting #15 tabs prednisone 50 mg tablet 50 mg PO DAILY #5 tabs 10/03/21 Allergies Allergy/AdvReac Type Severity Reaction Status Date / Time metoprolol AdvReac Severe severe Verified 10/03/21 03:55 body aches ondansetron HCl AdvReac Severe Nausea Verified 10/03/21 03:55 [From Zofran (as hydrochloride)] emtricitabine [From Truvada] AdvReac Intermediate N/V x2 Verified 10/03/21 03:55 days; migraine hydrocodone bitartrate AdvReac Intermediate Nausea Verified 10/03/21 03:55 [From Vicodin] oxycodone HCl [From Percocet] AdvReac Intermediate Nausea Verified 10/03/21 03:55 tenofovir [From Truvada] AdvReac Intermediate N/V x2 Verified 10/03/21 03:55 days; migraine General AILYN: 3 Review of Systems All systems reviewed & are unremarkable except as noted in HPI and below PFSH All Active Problems Nausea & vomiting (Acute) Gastroparesis (Acute) Pain of left great toe (Acute) Encounter for screening for other viral diseases (Acute) Medical History ADHD 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 Cameron Carpal tunnel syndrome on both sides (10/03/15) s/p b/l release which resolved issue Depression with anxiety Long history; Fluoxetine; Wellbutrin (helpful 2012), Buspar; episodes of panice with Clonazepam RX'ed long-term historically and uses very seldom per medical records Gastroparesis RX Metoclopremide Heartburn Long-term Pantoprazole, switched to safer H2 rishabh 03/2019 Hypertension Lisinopril 10mg (used to also be on Chlorthalidone 50mg daily) IBS (irritable bowel syndrome) Dx'ed ~2011; Colestid helpful for diarrhea; Levsin & Bentyl used 2014 Left inguinal hernia Migraine without aura and without status migrainosus, not intractable (10/03/15) Nonalcoholic fatty liver disease LIZBETH (obstructive sleep apnea) ran out of supplies for CPAP Renal insufficiency Shingles Surgical History H/O carpal tunnel repair (~02/2015) B/L H/O esophagogastroduodenoscopy (~02/2013) +Mild gastritis, normal mucosa History of appendectomy (~06/2014) Open History of cholecystectomy (~02/2007) History of colonoscopy (~02/2013) ~2013--normal mucosa, but +internal hemorrhoids History of colonoscopy (~10/2017) Dr. Alva in [place]--recalled for age 49; normal appearing mucosa all biopsies (random) benign History of tonsillectomy (~02/2012) S/P inguinal hernia repair using synthetic patch (~10/19/19) left Family History Father , Black lung on certificate; also with significant addiction Substance abuse Anxiety Depression Hypertension Paternal Grandfather Diabetes Alcohol abuse Mother Anxiety Depression Hypertension Maternal Grandfather Alcohol abuse Maternal Grandmother Alcohol abuse Heart disease Pancreatic cancer Paternal Grandmother Alcohol abuse Social History Smoking/Tobacco Use Status: Never Smoking risk assessment performed?: Yes Alcohol Intake: never Drug use: Never Substance use type: does not use Adopted: No Caregiver/Support person: No Foster care: No Household members: family Housing: house Communication Needs: None Do you need help understanding health information?: Rarely current occupation: [employer] Sexually active: Yes Do you think of yourself as: lesbian/ibarra/homosexual Current gender identity: male What type of physical activity do you participate in: walking Frequency: daily Seatbelt use: always Drive intox 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 3.ENT: Atraumatic external nose and ears. Moist MM. Neck: Symmetric, trachea midline, No thyromegaly. 4.CVS: +S1/S2, No murmurs or gallops. Peripheral pulses 2+ and equal in all extremities. Brisk capillary refill in all extremities. 5.RESP: Unlabored respiratory effort. Clear to auscultation bilaterally. No wheezes rales or rhonchi 6.GI: Soft, Nontender/Nondistended, No hepatosplenomegaly. No guarding or rebound. 7.MSK: Normocephalic/Atraumatic, patient's left great toe demonstrates small amount of swelling in the area of the MTP joint. No redness, no warmth, no other surrounding edema. No streaking. Pain is made worse with flexion and extension of the toe. No evidence of any other significant abnormality on exam 8.Skin: Warm, Dry. No rashes or lesions. 9.Neuro: applications development analyst II-XII grossly intact. Sensation grossly intact, no focal neurologic deficits. 10.Psych: (AAO) x3. Appropriate mood and affect
[2021-10-03] MEDS: Diclofenac 1% Gel 100 GM TUBE TP (04:04)
== END 2021-10-03 04:13 | disposition home or self-care (01) ==
PROVIDERS: Emergency Provider Student in an Organized Health Care Education/Training Program; PCP Family Medicine
DX: M79.675 Pain in left toe(s) (principal); M79.89 Other specified soft tissue disorders
CPT/HCPCS: 99282

== ENCOUNTER 2021-10-14 14:53 | Outpatient (REF) | payer OTHER, SELFPAY ==
[2021-10-15 10:55] LABS: HIV-1/2 Ag & Ab Screen Negative (Negative)
== END 2021-10-14 14:54 | disposition home or self-care (01) ==
LOC: NCHCN 14:53
PROVIDERS: PCP Family Medicine; Visit Provider Family Medicine
DX: Z11.4 Encounter for screening for human immunodeficiency virus [HIV] (principal)
CPT/HCPCS: 87389

== ENCOUNTER → 2022-01-02 13:40 | Outpatient (CLI) | payer OTHER, SELFPAY ==
--- NOTE | 2022-01-02 13:43 | DI.RAD_ITS ---
Exam(s) XR LUMBAR SPINE AP, LAT EXAM: XR LUMBAR SPINE AP, LAT CLINICAL HISTORY: LOW BACK AND HIP PAIN. TECHNIQUE: 2D digital imaging was performed of the lumbar spine. Three images were obtained. AP, l ateral and L5-S1 spot views were obtained. COMPARISON: CR CHEST 2 VIEWS PA,LAT from 02/22/[address] ABDOMEN PELVIS W from 12/18/2020 FINDINGS: BONES: No fracture or destructive lesion. Vertebral bodies are unremarkable. No facet hypertrophy kita ntified. DISKS: Intervertebral disc spaces are maintained. ALIGNMENT: Lumbar spinal alignment is within normal limits. No spondylolysis or spondylolisthesis. SOFT TISSUE: There is a stone in the left kidney. This was present on the CT scan from 12/18/2020. IMPRESSION: 1. Unremarkable radiographs of the lumbar spine. 2. Left nephrolithiasis. DATA REPOSITORY: RADIATION DOSE DELIVERED:
--- NOTE | 2022-01-02 13:45 | DI.RAD_ITS ---
Exam(s) XR HIP PELVIS ADULT BL EXAM: XR HIP PELVIS ADULT BL CLINICAL HISTORY: LOW BACK AND HIP PAIN. TECHNIQUE: 2D digital imaging was performed of the pelvis and bilateral hips. Three images were obt ained. AP pelvis and lateral views of both hips were obtained. COMPARISON: No exams were available for comparison FINDINGS: BONES: No acute fracture is present. No bony destructive lesion is seen. JOINTS: No dislocation present. SOFT TISSUE: Normal. IMPRESSION: Unrmarkable radiographs of bilat hips. Unremarkable radiographs of the pelvis DATA REPOSITORY: RADIATION DOSE DELIVERED:
== END ==
PROVIDERS: PCP Family Medicine; Visit Provider Chiropractor
DX: N20.0 Calculus of kidney (principal)
CPT/HCPCS: 73521; 72100

== ENCOUNTER 2022-01-24 16:39 | Emergency (ER) | payer OTHER, SELFPAY ==
[2022-01-24] VITALS (38 sets, daily range): BP systolic 117–153; BP diastolic 71–103; PULSE 110–144; RESP 14–35; TEMP 37.1; O2SAT 96–99
--- NOTE | 2022-01-24 16:45 | RT.EKG_ITS ---
APPROVED REPORT Exam: Resting ECG Reason for Exam: RAPID HEART RATE Patient Location: E HR:134 bpm ECG Measurements Heart Rate 134 AXIS NV 144 P 55 QRSd 81 QRS -28 QT 287 T 73 QTc 429 Conclusion Sinus tachycardia...rate> 99 [address] [place] Nonspecific ST-T changes
--- NOTE | 2022-01-24 17:11 | W.ED.GENAD ---
Discharge Plan Disposition Patient Disposition: Home Condition: Stable Discharge Details Clinical Impression: Infected pilonidal cyst Primary Care Provider: Robi Guevara ED Provider: Kalyani Oliva Home Meds and New Rx's Prescriptions: New cephalexin 500 mg capsule 500 mg PO BID Qty: 20 0RF Rx Instructions: Take one capsule twice daily x 10 days No Action flu vacc [id number] 6mos up(PF) 60 mcg (15 mcg x 4)/0.5 mL syringe 0.5 ml IM ONCE Qty: 0.5 0RF Vyvanse 40 mg capsule 50 mg PO DAILY metoclopramide HCl [Reglan] 10 mg tablet 10 mg PO Q6H PRN (Reason: nausea and vomiting) Qty: 15 0RF lisinopril 10 mg tablet 10 mg PO DAILY Discharge Instructions Instructions: Pilonidal Cyst (ED) Additional Instructions: Please take the antibiotic as directed with yogurt or probiotic. You may have an infected pilonidal cyst. Please continue warm compresses. Follow-up with general surgery within the next 1 to 2 weeks. You may call on Thursday morning to make an appointment. Please take Tylenol or Ibuprofen with food every 4-6 hours as needed for pain and swelling. Please return to the ER if you feel sicker at any time, fever, body aches chills or any concerns. Referrals: Debbie Caldwell MD [ [facility] STAFF PHYSICIAN] - 1 week Robi Guevara [Primary Care Provider] - 2 weeks Medical Decision Making Attempted I&D with 11 blade, no fluid expressed does feel hard and indurated. Will order CT pelvic to evaluate pilonidal cyst. Patient does have an 18,000 white count with absolute neutrophils 15.75, potassium is 3.3 creatinine is 1.4 GFR 68.49, glucose 131. Alk phos is 132. He is getting a liter of fluid. I will give him a gram of Rocephin and plan to place patient on antibiotics with general surgery consult or follow-up if needed. CT shows an area of pilonidal cyst with surrounding stranding which is concerning for possible infected pilonidal cyst. Please see result below. Will refer patient to general surgery patient was placed on the care management list for follow-up. Patient verbalized understanding and is in agreement with the plan. He is complaining of some back pain. I did discuss for him to return if any worsening at all. He was given cephalexin 500 mg twice daily for the next 10 days. He did receive a gram of Rocephin here in the department. Medical Records Medical records reviewed: Yes I reviewed the patient's medical records. Imaging Data Radiologic Study: Imaging: CT Scan Radiologist's impression: Soft tissues: Low-density lesion overlying distal sacrum, 1.9 x 2.0 x 3.2 centimetres, previously measured 1.3 x 1.5 cm, densities 28 Hounsfield units, appears to be thick wall, there is stranding/infiltration within surrounding adipose tissue. IMPRESSION: Low-density lesion overlying distal sacrum, 1.9 x 2.0 x 3.2 centimetres, cannot rule out an infected pilonidal cyst. Thank you for allowing us to participate in the care of your patient. Dictated and Authenticated by: Isai Mo MD Lab Data Lab results reviewed: Yes I reviewed the patient's lab results. Labs: Laboratory Tests Range/Units 01/24/22 01/24/22 17:00 17:00 WBC (4.4-10.8) 10^3/uL 18.16 H RBC (4.36-5.78) 10^6/uL 5.58 Hgb (13.5-17.5) g/dL 16.3 Hct (40.0-50.0) % 47.7 MCV (80-95) fL 86 MCH (27.0-33.0) pg 29.2 MCHC (32.0-36.0) % 34.2 RDW (11.8-14.1) % 12.4 Plt Count (130-400) 10^3/uL 235 MPV (8.0-11.0) fL 11.0 Immature Gran % 0.5 Neutrophils % 86.6 Lymphocytes % 7.6 Monocytes % 5.0 Eosinophils % 0.1 Basophils % 0.2 Nucleated RBC % (0.0-0.3) % 0.0 Absolute Neutrophils (1.2-6.7) 10^3/uL 15.73 H Absolute Lymphocytes (1.2-3.4) 10^3/uL 1.38 Absolute Monocytes (0.1-0.8) 10^3/uL 0.91 H Absolute Eosinophils (0.0-0.7) 10^3/uL 0.02 Absolute Basophils (0.0-0.2) 10^3/uL 0.04 Sodium (136-145) mmol/L 137 Potassium (3.5-5.1) mmol/L 3.3 L Chloride (98-107) mmol/L 100 Carbon Dioxide (21.0-32.0) mmol/L 29.9 Anion Gap (3-11) mmol/L 7.1 BUN (7-18) mg/dL 13 Creatinine (0.70-1.30) mg/dL 1.4 H Est GFR (CKD-EPI 2020) (mL/min/1.73m2) 68.49 Glucose (74-106) mg/dL 131 H Calcium (8.5-10.1) mg/dL 9.2 Magnesium (1.8-2.4) mg/dL 1.9 Total Bilirubin (0.2-1.0) mg/dL 0.7 AST (15-37) U/L 23 ALT (16-63) U/L 39 Alkaline Phosphatase (46-116) U/L 132 H Total Protein (6.4-8.2) g/dL 8.1 Albumin (3.4-5.0) g/dL 4.1 Sign Out No HPI General Mode of arrival: ambulatory. Date/Time Provider Initiated Documentation: 01/24/22 16:54. Limitations to Documentation: no limitations. Information obtained by: patient, RN notes reviewed and old records reviewed. HPI Narrative: 31-year-old male presents to the ER with a chief complaint of cyst on coccyx he reports he noticed yesterday morning after riding in a car for long periods of time. He denies any fever or chills. However of note his heart rate is 130 upon arrival. He does report that he has history of anxiety and tachycardia normally takes lisinopril and Vyvanse which he has not taken today. Related Data Home Medications Medication Instructions Recorded Confirmed lisdexamfetamine 40 mg capsule 50 mg PO DAILY 09/20/19 01/24/22 (Vyvanse) metoclopramide HCl 10 mg tablet 10 mg PO Q6H PRN nausea and 09/04/20 01/24/22 (Reglan) vomiting #15 tabs lisinopril 10 mg tablet 10 mg PO DAILY 10/03/21 01/24/22 cephalexin 500 mg capsule 500 mg PO BID #20 caps 01/24/22 Previous Rx's Medication Instructions Recorded metoclopramide HCl 10 mg tablet 10 mg PO Q6H PRN nausea and 09/04/20 (Reglan) vomiting #15 tabs cephalexin 500 mg capsule 500 mg PO BID #20 caps 01/24/22 Allergies Allergy/AdvReac Type Severity Reaction Status Date / Time metoprolol AdvReac Severe severe Verified 01/24/22 16:58 body aches ondansetron HCl AdvReac Severe Nausea Verified 01/24/22 16:58 [From Zofran (as hydrochloride)] emtricitabine [From Truvada] AdvReac Intermediate N/V x2 Verified 01/24/22 16:58 days; migraine hydrocodone bitartrate AdvReac Intermediate Nausea Verified 01/24/22 16:58 [From Vicodin] oxycodone HCl [From Percocet] AdvReac Intermediate Nausea Verified 01/24/22 16:58 tenofovir [From Truvada] AdvReac Intermediate N/V x2 Verified 01/24/22 16:58 days; migraine General Stated Complaint: GenMedical AILYN: 4 Review of Systems All systems reviewed & are unremarkable except as noted in HPI and below Constitutional Constitutional: Reports as per HPI, Denies body ache(s) and Denies fever(s) Cardiovascular Cardiovascular: Reports rapid heart rate Musculoskeletal Musculoskeletal: Reports as per HPI and Reports back pain Integumentary/Breasts Skin/Breast: Reports as per HPI, Reports erythema, Reports skin swelling and Reports other (Swelling at Coccyx, appearance of Pilonidal cyst) PFSH All Active Problems (Updated 01/24/22 @ 21:06 by Kalyani Oliva NP) Nausea & vomiting (Acute) Gastroparesis (Acute) Infected pilonidal cyst (Acute) Encounter for screening for other viral diseases (Acute) Medical History ADHD 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 Cameron Carpal tunnel syndrome on both sides (10/03/15) s/p b/l release which resolved issue Depression with anxiety Long history; Fluoxetine; Wellbutrin (helpful 2012), Buspar; episodes of panice with Clonazepam RX'ed long-term historically and uses very seldom per medical records Gastroparesis RX Metoclopremide Heartburn Long-term Pantoprazole, switched to safer H2 rishabh 03/2019 Hypertension Lisinopril 10mg (used to also be on Chlorthalidone 50mg daily) IBS (irritable bowel syndrome) Dx'ed ~2011; Colestid helpful for diarrhea; Levsin & Bentyl used 2014 Left inguinal hernia Migraine without aura and without status migrainosus, not intractable (10/03/15) Nonalcoholic fatty liver disease LIZBETH (obstructive sleep apnea) ran out of supplies for CPAP Renal insufficiency Shingles Surgical History H/O carpal tunnel repair (~02/2015) B/L H/O esophagogastroduodenoscopy (~02/2013) +Mild gastritis, normal mucosa History of appendectomy (~06/2014) Open History of cholecystectomy (~02/2007) History of colonoscopy (~02/2013) ~2013--normal mucosa, but +internal hemorrhoids History of colonoscopy (~10/2017) Dr. Alva in [place]--recalled for age 49; normal appearing mucosa all biopsies (random) benign History of tonsillectomy (~02/2012) S/P inguinal hernia repair using synthetic patch (~10/19/19) left Family History Father , Black lung on certificate; also with significant addiction Substance abuse Anxiety Depression Hypertension Paternal Grandfather Diabetes Alcohol abuse Mother Anxiety Depression Hypertension Maternal Grandfather Alcohol abuse Maternal Grandmother Alcohol abuse Heart disease Pancreatic cancer Paternal Grandmother Alcohol abuse Social History Smoking/Tobacco Use Status: Never Smoking risk assessment performed?: Yes Alcohol Intake: never Drug use: Never Substance use type: does not use Adopted: No Caregiver/Support person: No Foster care: No Household members: family Housing: house Communication Needs: None Do you need help understanding health information?: Rarely 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 Appears stated age. Normal body habitus. Head: Normocephalic, no trauma. Eyes: Pupils PERRL, Red reflex noted, EOM's intact. Eyelids symmetrical without lesions, discharge, or swelling. ENT: Bilateral TM's WNL, External ear normal to inspection, no mastoid TTP, swelling, or erythema, Nasal turbinates WNL, no nasal discharge. Normal dentition, Posterior pharynx WNL, no exudate. Chest: Tachycardic at a rate of 123, he reports that this is normal for him normal S1, S2, distal pulses intact. Resp: Lungs clear to auscultation bilaterally, no wheezes, rales, or rhonchi. Abdomen: Soft, non-distended, Normoactive bowel sounds all 4 quads. Musculoskeletal: Normal gait, 5/5 strength to all four extremities. Skin: See back exam below, does have area of erythema, which is indurated no obvious area of fluctuance at the coccyx capillary refill less than 2 sec. Neurologic: Cranial nerves II-XII intact. Alert and oriented x 3. Motor: No deficits noted. Sensory: Intact bilaterally all 4 extremities. Reflexes: DTR's intact bilaterally.. Hematologic/Lymphatic: No ecchymosis, no lymphadenopathy. Back/Spine/Pelvis Back/spine/pelvis image: 1. Area of erythema and induration is measuring approximately 4 cm x 3 cm. No obvious area of fluctuance no drainage noted. Course Vital Signs Vital signs: Vital Signs Temperature 37.1 C 01/24/22 16:41 Pulse 135 H 01/24/22 16:41 Respiratory Rate 18 01/24/22 16:41 Blood Pressure 153/99 H 01/24/22 16:41 Pulse Oximetry 98 01/24/22 16:41 Temperature 37.1 C 01/24/22 16:41 Temperature Source Tympanic 01/24/22 16:41 Pulse 135 H 01/24/22 16:41 Respiratory Rate 18 01/24/22 16:48 Respiratory Effort Non-Labored 01/24/22 16:48 Respiratory Depth Normal 01/24/22 16:48 Respiratory Pattern Normal 01/24/22 16:48 Blood Pressure 153/99 H 01/24/22 16:41 Blood Pressure Position Supine 01/24/22 16:41 Pulse Oximetry 98 01/24/22 16:41 Pain Level 7 01/24/22 16:57 Procedures Abscess I/D Site: Octavia-rectal Sedation/analgesia: None Local Anesthetic: Lidocaine 1% and With Epi Amount of anesthesia used (mL): 3 Technique: Incised with #11 Blade Amount of fluid expressed (mL): 0 Irrigation: No Packing used?: None Complications: Other (None no fluid expressed,)
[2022-01-24 17:59] LABS: Abs Immature Grans 0.09 10^3/uL (0.0-0.06); Absolute Basophil Count 0.04 10^3/uL (0.0-0.2); Absolute Eosinophil Count 0.02 10^3/uL (0.0-0.7); Absolute Lymphocyte Count 1.38 10^3/uL (1.2-3.4); Absolute Neutrophil Count 15.73 10^3/uL (1.2-6.7); Basophils % 0.2; Eosinophils % 0.1; HCT 47.7 % (40.0-50.0); HGB 16.3 g/dL (13.5-17.5); Immature Grans % 0.5; Lymphocytes % 7.6; MCH 29.2 pg (27.0-33.0); MCHC 34.2 % (32.0-36.0); MCV 86 fL (80-95); Neutrophils % 86.6; Platelet Count 235 10^3/uL (130-400); RBC 5.58 10^6/uL (4.36-5.78); RDW 12.4 % (11.8-14.1); RDW-SD 38.5 fL; WBC 18.16 10^3/uL (4.4-10.8)
[2022-01-24 18:00] LABS: Absolute Monocyte Count 0.91 10^3/uL (0.1-0.8)
[2022-01-24 18:18] LABS: ALT 39 U/L (16-63); AST 23 U/L (15-37); Albumin 4.1 g/dL (3.4-5.0); Alkaline Phosphatase 132 U/L (46-116); Anion Gap 7.1 mmol/L (3-11); BUN 13 mg/dL (7-18); Bilirubin, Total 0.7 mg/dL (0.2-1.0); CO2 29.9 mmol/L (21.0-32.0); CREATININE 1.4 mg/dL (0.70-1.30); Calcium 9.2 mg/dL (8.5-10.1); Chloride 100 mmol/L (98-107); Estimated GFR 68.49 (mL/min/1.73m2); Glucose 131 mg/dL (74-106); Magnesium 1.9 mg/dL (1.8-2.4); Potassium 3.3 mmol/L (3.5-5.1); Sodium 137 mmol/L (136-145); Total Protein 8.1 g/dL (6.4-8.2)
--- NOTE | 2022-01-24 18:30 | DI.CT_ITS ---
Exam(s) CT PELVIC W EXAM: CT PELVIC W CLINICAL HISTORY: Pilonidal cyst TECHNIQUE: COMPARISON: CT CT ABDOMEN PELVIS W from 12/18/2020 FINDINGS: CT examination of the pelvis was performed with bolus infusion of 100 cc of Omnipaque 350. There is reportedly history of pilonidal cyst. An approximately 13 x 15 millimeter in diameter low-attenuatio n lesion was seen superficial to the sacrum on prior examination of November 2020. On today's examina tion, this is increased in size to 19 x 20 x 32 millimeters and shows Octavia lesional fat edema raising the possibility of infectious process. No gross cysts sacral erosive or destructive process is seen. No intrapelvic mass or adenopathy. Un remarkable appearance of urinary bladder and bowel as visualized. IMPRESSION: Appearance suggesting infected pilonidal cyst, please see above discussion. RADIATION DOSE DELIVERED: 291.88mGy.cm Total DLP DATA REPOSITORY: All CT scans at this facility are submitted to the National Radiology Data Registry (NRDR) Dose Index Registry (DIR) with the [employer] ([employer]). RADIATION OPTIMIZATION: All CT scans at this facility use at least one of these dose optimization te chniques: automated exposure control; mA and/or kV adjustment per patient size (includes targeted exa ms where dose is matched to clinical indication); or iterative reconstruction.
[2022-01-24] MEDS: cefTRIAXone 1 GM/50 ML BAG IVPB (19:19)
[2022-01-24] MEDS: Lidocaine 1% Pres-Free W/EPI 1/200,000 30 ML VIAL IJ (19:23)
[2022-01-24] MEDS: Normal Saline 1,000 ML 1000 ML IV (19:24)
[2022-01-24] MEDS: Omnipaque 350 MG/ML 100 ML BTL IJ (20:02)
[2022-01-24] MEDS: Normal Saline - Diluent 50 ML VIAL IJ (20:04)
--- NOTE | 2022-01-24 20:28 | DI.VRAD_ITS ---
PROCEDURE INFORMATION: Exam: CT Abdomen And Pelvis With Contrast Exam date and time: 01/24/2022 7:58 PM Age: 31 years old Clinical indication: Other: Pilonidal cyst TECHNIQUE: Imaging protocol: Computed tomography of the abdomen and pelvis with contrast. Radiation optimization: All CT scans at this facility use at least one of these dose optimization techniques: automated exposure control; mA and/or kV adjustment per patient size (includes targeted exams where dose is matched to clinical indication); or iterative reconstruction. Contrast material: OMNI 350; Contrast volume: 100 ml; Contrast route: INTRAVENOUS (IV); COMPARISON: CT ABDOMEN PELVIS W 12/18/2020 9:05 AM FINDINGS: Liver: Not imaged. Gallbladder and bile ducts: Not imaged. Pancreas: Not imaged. Spleen: Not imaged. Adrenal glands: Not imaged. Kidneys and ureters: Kidneys are not imaged. Stomach and bowel: Unremarkable. No obstruction. No mucosal thickening. Appendix: Status post appendectomy. Intraperitoneal space: No free air. No significant fluid collection. Vasculature: No abdominal aortic aneurysm. Lymph nodes: No enlarged lymph nodes. Urinary bladder: Unremarkable as visualized. Reproductive: Unremarkable as visualized. Bones/joints: No aggressive osseous lesions involving underlying bone. Soft tissues: Low-density lesion overlying distal sacrum, 1.9 x 2.0 x 3.2 centimetres, previously measured 1.3 x 1.5 cm, densities 28 Hounsfield units, appears to be thick wall, there is stranding/infiltration within surrounding adipose tissue. IMPRESSION: Low-density lesion overlying distal sacrum, 1.9 x 2.0 x 3.2 centimetres, cannot rule out an infected pilonidal cyst. Dictated and Authenticated by: Isai Mo MD. Ordering:CELESTINE Auguste MD
--- NOTE | 2022-01-24 21:16 | NUR.NOTE ---
Referral faxed to [facility] to f/u in a week for an infected pilonidal cyst. Patient put on Cephalexin 500 mg 2x a day for 10 days.Nursing Note:
== END 2022-01-24 21:30 | disposition home or self-care (01) ==
PROVIDERS: Emergency Provider Registered Nurse Emergency; PCP Family Medicine
DX: L05.91 Pilonidal cyst without abscess (principal); I10 Essential (primary) hypertension; R00.0 Tachycardia, unspecified
CPT/HCPCS: 10080; 80053; 93005; 96361; 96365; 99285; 72193; 83735; 85025; 93010; J0696; J3490

== ENCOUNTER 2022-01-25 15:58 | Emergency (ER) | payer OTHER, SELFPAY ==
[2022-01-25 16:03] VITALS: BP 135/90; PULSE 139; RESP 18; TEMP 36.8; O2SAT 99
--- NOTE | 2022-01-25 16:12 | ED.GENADUL_ITS ---
Discharge Plan Disposition Patient Disposition: Home Condition: Improving Discharge Details Clinical Impression: Infected pilonidal cyst Primary Care Provider: Robi Guevara ED Provider: Eileen Gates Home Meds and New Rx's Prescriptions: New metoclopramide HCl [Reglan] 10 mg tablet 10 mg PO Q6H PRN (Reason: nausea and vomiting) Qty: 7 0RF oxycodone 5 mg tablet 5 mg PO Q6H PRN (Reason: pain) Qty: 7 0RF Continued flu vacc [id number] 6mos up(PF) 60 mcg (15 mcg x 4)/0.5 mL syringe 0.5 ml IM ONCE Qty: 0.5 0RF Vyvanse 40 mg capsule 50 mg PO DAILY lisinopril 10 mg tablet 10 mg PO DAILY Discontinued cephalexin 500 mg capsule 500 mg PO BID Qty: 20 0RF Rx Instructions: Take one capsule twice daily x 10 days No Action cabotegravir 600 mg/3 mL (200 mg/mL) suspension,extended release 600 mg IM [id number] Discharge Instructions Instructions: Clindamycin (By mouth), Metoclopramide (By mouth), Oxycodone, Rapid Release (By mouth), Pilonidal Cyst (ED) Additional Instructions: Your abscess was drained here today. Please continue to encourage hydration. Please keep current dressing on until tomorrow. After that time you may take this off in shower and wash with running water and soap. Please apply dressing after that time. Please try to leave the packing in for the next 48 hours but if this falls out do not try to replace it. You may use Tylenol and ibuprofen as needed for discomfort. If this is not sufficient at alleviating and of discomfort, you may augment with the oxycodone as prescribed. Please do not take this on an empty stomach. You may use the Reglan as prescribed if you develop any nausea with this once again. Please take the clindamycin as prescribed. Next dose will be due tomorrow morning. Please take 450 mg at a dose, this will be 3 tabs of the dose prescribed. [facility] call [facility] Thursday morning to schedule prompt follow-up appointment. If you develop fever/chills, increased pain, spreading of the redness or other new/worsening symptom please seek care urgently once again. Referrals: Debbie Caldwell MD [ [facility] STAFF PHYSICIAN] - Discharge Data Discharge Date/Time-TO BE ENTERED AT DEPARTURE: 01/25/22 21:04 Medical Decision Making Jacinda payne a pleasant 31 year old male, presenting today with c/c of worsening pilonidal cyst. He was seen here yesterday and diagnosed with pilonidal. CT was obtained showing contained picket of fluid, no evidence of osteomyelitis. Patient received IV abx, placed on oral abx. He states that b/c of the pain when sitting, he has not been abl eot drive to corn picker the prescription. Attempt was made at aspiration but no fluid was obtained. He states that since being here last, the area has increased in size, severity of pain and he has been feeling warm. Denies abdominal pain. No pain at the anus or pain with defication aside from pressure on sacral area. On exam, he appeears uncomfortable but nontoxic, preferring to lay on his stomach. Abdomen is benign. Area of abscess evidence once again, slightly displaced to the left side. Identified aas well on US. Surrounding area erythematous and tender. No palpable lymphadeopathy. Reviewed evaluation from yesterday. Will treat pain/anxiety, give another dose of IV abx. Will transition to clindamycin. Will hydrate the patient. Discussed risks/benefits as well as epxected procedural steps and alternatives with jacinda gilmore. He voices udnerstanding and wishes to proceed. US was also reviewed by Dr. Delgado who was present at the begnning of the I&D. Please see procedure note. Patient tolerated this well. Purlent, foul smelling discharge expressed. Area was irrigated and wound packed. During procedure, his pain/anxiety begain to increase and repeat dosing of analgesic and anxiolytic given. Labs reviewed. Increased leukocytosis. Normal lactate. Patient and i discussed inpatient vs. outpatient management. His cousin is at bedside. He would like to be able to go home with her. I am concerned about how his infection worsened. However, he would prefer to be d/c to stay with family. We will send with abx. Cousin will corn picker the rest tomorrow. We discussed wound care in depth. Will refer to general surgery for continued management. Strict return precautions discussed. Will sed hoe wtih pain medication. He had oxycodone on his allergy list, as well as vicodin, but patient states that these were just nausea from taking on an empty stomach and would feel comfortable taking narcotics again. He has used reglan with good success in the past for his nausea, will continue with this. Encouraged hydration. Strict return precautions discussed, all of his questions and concerns were addressed, he is in agreement with this plan. Sign Out No HPI General Date/Time Provider Initiated Documentation: 01/25/22 16:12 . Limitations to Documentation: no limitations . Information obtained by: patient, RN notes reviewed and old records reviewed . History of Present Illness 31 year old M presents to the emergency department with the chief complaint of pilonidal cyst, described as severe, with intensity rated at 10. Quality is described as stabbing, and is localized to the buttocks. Patient reports no radiation. Patient started experiencing this day(s) and it has been constant (progressively worsening). Immobilization improves symptom(s), Movement worsens symptoms . Patient notes no other symptoms.. Patient did receive the following treatments prior to arrival, none (prescribed abx but has not yet picked up) Related Data Home Medications Medication Instructions Recorded Confirmed lisdexamfetamine 40 mg capsule 50 mg PO DAILY 09/20/19 01/29/22 (Vyvanse) lisinopril 10 mg tablet 10 mg PO DAILY 10/03/21 01/29/22 metoclopramide HCl 10 mg tablet 10 mg PO Q6H PRN nausea and 01/25/22 01/29/22 (Reglan) vomiting #7 tabs oxycodone 5 mg tablet 5 mg PO Q6H PRN pain #7 tabs 01/25/22 01/29/22 cabotegravir 600 mg/3 mL (200 600 mg IM [id number] 01/29/22 01/29/22 mg/mL) IM suspension,extended release Previous Rx's Medication Instructions Recorded metoclopramide HCl 10 mg tablet 10 mg PO Q6H PRN nausea and 01/25/22 (Reglan) vomiting #7 tabs oxycodone 5 mg tablet 5 mg PO Q6H PRN pain #7 tabs 01/25/22 Allergies Allergy/AdvReac Type Severity Reaction Status Date / Time emtricitabine [From Truvada] Allergy Intermediate N/V x2 Verified 01/31/22 08:31 days; migraine, throat swelling metoprolol AdvReac Severe severe Verified 01/31/22 08:31 body aches hydrocodone bitartrate AdvReac Intermediate Nausea Verified 01/31/22 08:31 [From Vicodin] oxycodone HCl [From Percocet] AdvReac Intermediate Nausea Verified 01/31/22 08:31 tenofovir [From Truvada] AdvReac Intermediate N/V x2 Verified 01/31/22 08:31 days; migraine General Stated Complaint: RashLesion AILYN: 3 Review of Systems Constitutional Constitutional: Reports as per HPI, Reports chills, Reports fatigue, Reports fever(s) and Reports malaise Gastrointestinal Gastrointestinal: Reports as per HPI, Denies abdominal pain, Denies melena, Denies bloating, Denies hematochezia, Denies constipation, Denies fecal incontinence, Denies diarrhea and Denies vomiting Genitourinary Genitourinary: Reports system reviewed and no additional complaints, except as documented (no change in urinary habits) Musculoskeletal Musculoskeletal: Reports as per HPI Integumentary/Breasts Skin/Breast: Reports as per HPI, Reports change in pigmentation (erythrma around known abscess has been increasing), Reports skin pain and Reports skin swelling Neurologic Neurologic: Reports as per HPI, Denies sensory deficit and Denies paresthesias Endocrine Endocrine: Reports fatigue PFSH All Active Problems (Updated 01/25/22 @ 20:32 by MOOSE Degroot) Nausea & vomiting (Acute) Gastroparesis (Acute) Infected pilonidal cyst (Acute) Encounter for screening for other viral diseases (Acute) Medical History ADHD 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 Cameron Carpal tunnel syndrome on both sides (10/03/15) s/p b/l release which resolved issue Depression with anxiety Long history; Fluoxetine; Wellbutrin (helpful 2012), Buspar; episodes of panice with Clonazepam RX'ed long-term historically and uses very seldom per medical records Gastroparesis RX Metoclopremide Heartburn Long-term Pantoprazole, switched to safer H2 rishabh 03/2019 Hypertension Lisinopril 10mg (used to also be on Chlorthalidone 50mg daily) IBS (irritable bowel syndrome) Dx'ed ~2011; Colestid helpful for diarrhea; Levsin & Bentyl used 2014 Left inguinal hernia Migraine without aura and without status migrainosus, not intractable (10/03/15) Nonalcoholic fatty liver disease LIZBETH (obstructive sleep apnea) ran out of supplies for CPAP Renal insufficiency Shingles Surgical History H/O carpal tunnel repair (~02/2015) B/L H/O esophagogastroduodenoscopy (~02/2013) +Mild gastritis, normal mucosa History of appendectomy (~06/2014) Open History of cholecystectomy (~02/2007) History of colonoscopy (~02/2013) ~2013--normal mucosa, but +internal hemorrhoids History of colonoscopy (~10/2017) Dr. Alva in [place]--recalled for age 49; normal appearing mucosa all biopsies (random) benign History of tonsillectomy (~02/2012) S/P inguinal hernia repair using synthetic patch (~10/19/19) left Family History Father , Black lung on certificate; also with significant addiction Substance abuse Anxiety Depression Hypertension Paternal Grandfather Diabetes Alcohol abuse Mother Anxiety Depression Hypertension Maternal Grandfather Alcohol abuse Maternal Grandmother Alcohol abuse Heart disease Pancreatic cancer Paternal Grandmother Alcohol abuse Social History Smoking/Tobacco Use Status: Never Smoking risk assessment performed?: Yes Alcohol Intake: never Drug use: Never Substance use type: does not use Adopted: No Caregiver/Support person: No Foster care: No Household members: family Housing: house Communication Needs: None Do you need help understanding health information?: Rarely 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, [employer] Sexually active: Yes Do you think of yourself as: lesbian/ibarra/homosexual Current gender identity: male What type of physical activity do you participate in: walking Frequency: daily Seatbelt use: always Drive intox or ride w/intox 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: No Working smoke detector in home: Yes Fire extinguisher in home: Yes Firearms in home: No Do you feel safe at home: Yes Do you feel safe in your relationship?: Yes Exam Const General: cooperative, healthy appearing, uncomfortable, no acute distress and well developed Nutritional Appearance: average body habitus and well nourished Orientation: alert and awake Resp Effort & Inspection: normal respiratory effort, able to speak in complete sentences and no respiratory distress Cardio Rate: regular rate Rhythm: regular rhythm GI Inspection: normal to inspection, no edema and non-distended Palpation: soft, no guarding and nontender Auscultation: normal bowel sounds Rectal Exam: visual inspection normal Back/Spine/Pelvis Back/spine/pelvis image: 1. Area of fluctuance and maximal point of tenderness 2. Area of erythema. Neuro General: patient alert and patient awake Cognition: normal cognition Speech: speech normal Gait: normal gait Sensory Exam: no sensory deficits noted Psych Appearance: grossly normal and well kempt Mental Status: mental status grossly normal Speech and Movement: speech and movement normal Course Vital Signs Vital signs: Vital Signs Temperature 36.8 C 01/25/22 16:03 Pulse 139 H 01/25/22 16:03 Respiratory Rate 18 01/25/22 16:03 Blood Pressure 135/90 01/25/22 16:03 Pulse Oximetry 99 01/25/22 16:03 Temperature 36.8 C 01/25/22 16:03 Temperature Source Oral 01/25/22 16:03 Pulse 139 H 01/25/22 16:03 Respiratory Rate 18 01/25/22 16:03 Respiratory Effort Non-Labored 01/25/22 16:06 Blood Pressure 135/90 01/25/22 16:03 Blood Pressure Position Sitting 01/25/22 16:03 Pulse Oximetry 99 01/25/22 16:03 Oxygen Delivery Method Room Air 01/25/22 16:03 Oxygen Flow Rate 0 01/25/22 16:03 Pain Level 9 01/25/22 16:03 Procedures Abscess I/D Site: Other (pilonidal) Side (if applicable): Left Sedation/analgesia: Other (morphine and ativan) Local Anesthetic: Lidocaine 1% and With Epi Amount of anesthesia used (mL): 6 Technique: Incised with #11 Blade Amount of fluid expressed (mL): 10 Irrigation: Yes Packing used?: Iodoform
[2022-01-25 17:21] LABS: Abs Immature Grans 0.09 10^3/uL (0.0-0.06); Absolute Basophil Count 0.06 10^3/uL (0.0-0.2); Absolute Eosinophil Count 0.02 10^3/uL (0.0-0.7); Absolute Lymphocyte Count 1.03 10^3/uL (1.2-3.4); Absolute Monocyte Count 1.21 10^3/uL (0.1-0.8); Absolute Neutrophil Count 17.44 10^3/uL (1.2-6.7); Basophils % 0.3; Eosinophils % 0.1; HCT 44.9 % (40.0-50.0); HGB 15.2 g/dL (13.5-17.5); Immature Grans % 0.5; Lymphocytes % 5.2; MCH 29.3 pg (27.0-33.0); MCHC 33.9 % (32.0-36.0); MCV 87 fL (80-95); MPV 9.4 fL (8.0-11.0); Monocytes % 6.1; Neutrophils % 87.8; Platelet Count 311 10^3/uL (130-400); RBC 5.18 10^6/uL (4.36-5.78); RDW 12.3 % (11.8-14.1); RDW-SD 39.5 fL; WBC 19.86 10^3/uL (4.4-10.8)
[2022-01-25] MEDS: CLINDAMYCIN 600 MG/50 ML BAG 100 MG IVPB (17:30)
[2022-01-25] MEDS: Lidocaine/Epinephri/Tetracaine Topical Gel 3 ML (17:31)
[2022-01-25] MEDS: MORPHine 4 MG/ML SYR IVP (17:31)
[2022-01-25] MEDS: Normal Saline 1,000 ML 1000 ML IV (17:31)
[2022-01-25] MEDS: LORazepam 2 MG/ML VIAL 1 MG IVP (17:31)
[2022-01-25] MEDS: Lidocaine/Epinephri/Tetracaine Topical Gel 3 ML TP (17:31)
[2022-01-25 17:37] LABS: ALT 69 U/L (16-63); AST 42 U/L (15-37); Albumin 3.9 g/dL (3.4-5.0); Alkaline Phosphatase 127 U/L (46-116); BUN 8 mg/dL (7-18); CREATININE 1.1 mg/dL (0.70-1.30); Chloride 100 mmol/L (98-107); Estimated GFR 91.47 (mL/min/1.73m2); Glucose 99 mg/dL (74-106); Magnesium 1.7 mg/dL (1.8-2.4); Potassium 3.4 mmol/L (3.5-5.1); Sodium 139 mmol/L (136-145)
[2022-01-25] MEDS: MORPHine 4 MG/ML SYR (18:10)
[2022-01-25] MEDS: LORazepam 2 MG/ML VIAL (18:10)
[2022-01-25 20:24] VITALS: BP 132/78; PULSE 115; RESP 18; O2SAT 98
[2022-01-25] MEDS: Lactated Ringers 1,000 ML 1000 ML IV (20:24)
[2022-01-25] MEDS: Metoclopramide 10 MG TAB 20 MG PO (20:44)
[2022-01-25] MEDS: Clindamycin 150 MG CAP, 12 CAPS/BTL 450 MG PO (20:44)
--- NOTE | 2022-01-25 21:00 | NUR.NOTE ---
Referral faxed to [facility] Patient returned to ED. Pilonidal cyst drained antibiotics changed. Provider would like patient seen for f/u 01/27 or 01/28 if at all possible.Nursing Note:
== END 2022-01-25 21:04 | disposition home or self-care (01) ==
PROVIDERS: Emergency Provider Physician Assistant; PCP Family Medicine
DX: L05.01 Pilonidal cyst with abscess (principal); F90.9 Attention-deficit hyperactivity disorder, unspecified type; I10 Essential (primary) hypertension
CPT/HCPCS: 10080; 80053; 96361; 96365; 96372; 96375; 99284; 83605; 83735; 85025; J2060; J2270

== ENCOUNTER 2022-01-27 17:53 | Outpatient (REF) | payer OTHER, SELFPAY ==
[2022-01-27 19:42] LABS: CREATININE 1.3 mg/dL (0.70-1.30); Estimated GFR 74.85 (mL/min/1.73m2); TSH (W/Ref FT4) 2.69 uIU/mL (0.36-3.74)
[2022-01-29 09:38] LABS: Hepatitis B Surface Ag Negative (Negative)
[2022-01-29 10:43] LABS: HIV-1/2 Ag & Ab Screen Negative (Negative)
== END 2022-01-27 17:54 | disposition home or self-care (01) ==
LOC: NCHCN 17:53
PROVIDERS: PCP Family Medicine; Visit Provider Family Medicine
DX: Z20.6 Contact with and (suspected) exposure to human immunodeficiency virus [HIV] (principal)
CPT/HCPCS: 87340; 87389; 82565; 84443

== ENCOUNTER 2022-04-15 18:24 | Outpatient (REF) | payer OTHER, SELFPAY ==
[2022-04-17 12:06] LABS: HIV-1/2 Ag & Ab Screen Negative (Negative)
[2022-04-17 12:12] LABS: Hepatitis B Surface Ag Negative (Negative)
[2022-04-17 12:17] LABS: Syphilis Serology (RPR) Negative (Negative)
[2022-04-17 14:14] LABS: Chlamydia Result Negative (Negative); GC Result Negative (Negative)
== END 2022-04-15 18:25 | disposition home or self-care (01) ==
LOC: NCHCN 18:24
PROVIDERS: PCP Family Medicine; Visit Provider Family Medicine
DX: Z11.59 Encounter for screening for other viral diseases (principal); Z11.3 Encounter for screening for infections with a predominantly sexual mode of transmission; Z13.89 Encounter for screening for other disorder
CPT/HCPCS: 87340; 87389; 87491; 87591; 86592

== ENCOUNTER 2022-05-16 10:15 | Outpatient (CLI) | payer OTHER, SELFPAY ==
--- NOTE | 2022-05-16 11:19 | DI.RAD_ITS ---
Exam(s) XR TOE LT GREAT EXAM: XR TOE LT GREAT CLINICAL HISTORY: PAIN IN LT TOE, M79.675. TECHNIQUE: 2D digital imaging was performed. Three images were obtained. COMPARISON: No exams were available for comparison FINDINGS: BONES: No acute fracture is present. No bony destructive lesion is seen. No erosions are seen. JOINTS: No dislocation present. SOFT TISSUE: Normal. IMPRESSION: Unremarkable great toe. DATA REPOSITORY: RADIATION DOSE DELIVERED:
== END 2022-05-16 10:35 ==
LOC: DI 10:15
PROVIDERS: PCP Family Medicine; Visit Provider Physician Assistant Medical
DX: M79.675 Pain in left toe(s) (principal)
CPT/HCPCS: 73660

== ENCOUNTER 2022-06-11 14:34 | Outpatient (REF) | payer OTHER, SELFPAY ==
[2022-06-11 15:07] LABS: Uric Acid 7.2 mg/dL (3.5-7.2)
== END 2022-06-11 14:35 | disposition home or self-care (01) ==
LOC: LBN 14:34
PROVIDERS: PCP Family Medicine; Visit Provider Family Medicine
DX: M79.675 Pain in left toe(s) (principal)
CPT/HCPCS: 84550

== ENCOUNTER 2022-07-14 15:43 | Outpatient (REF) | payer OTHER, SELFPAY ==
[2022-07-16 10:29] LABS: HIV-1/2 Ag & Ab Screen Negative (Negative)
== END 2022-07-14 15:44 | disposition home or self-care (01) ==
LOC: NCHCN 15:43
PROVIDERS: PCP Family Medicine; Visit Provider Family Medicine
DX: Z20.6 Contact with and (suspected) exposure to human immunodeficiency virus [HIV] (principal); Z11.4 Encounter for screening for human immunodeficiency virus [HIV]
CPT/HCPCS: 87389

== ENCOUNTER 2022-07-18 05:59 | Day surgery (SDC) | payer OTHER, SELFPAY ==
--- NOTE | 2022-07-17 18:53 | W.PREOPHP ---
Assessment and Plan Assessment and plan (1) Pilonidal cyst: Status: Acute Assessment and plan: We reviewed the surgical plan today, and I think he has a good understanding of the risks and benefits of the procedure, as well as the anticipated recovery. History of Present Illness History of Present Illness Chief Complaint: Pilonidal cyst Narrative: He is 31 years old, he has been dealing with pilonidal cyst since January 2022.? He does not remember having any symptoms prior to that.? He first noticed it after a long car ride, increasingly painful, and started to drain some fluid.? At that time, he required incision and drainage, and antibiotics.? The infection did resolve, and has been relatively asymptomatic over the past few months.? He has been diligently washing the area, paying careful attention to hygiene.? Since his last visit, he has required no more antibiotic therapies, or aggressive incisions. 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 Cameron Has been discharged from oncology services as of 2021. Carpal tunnel syndrome on both sides (10/03/15) s/p b/l release which resolved issue Depression with anxiety Long history; Fluoxetine; Wellbutrin (helpful 2012), Buspar; episodes of panice with Clonazepam RX'ed long-term historically and uses very seldom per medical records Gastroparesis RX Metoclopremide Heartburn Long-term Pantoprazole, switched to safer H2 rishabh 03/2019 Hypertension Lisinopril 10mg (used to also be on Chlorthalidone 50mg daily) IBS (irritable bowel syndrome) Dx'ed ~2011; Colestid helpful for diarrhea; Levsin & Bentyl used 2014 Left inguinal hernia Migraine without aura and without status migrainosus, not intractable (10/03/15) Nonalcoholic fatty liver disease LIZBETH (obstructive sleep apnea) ran out of supplies for CPAP Renal insufficiency Shingles Surgical History H/O carpal tunnel repair (~02/2015) B/L H/O esophagogastroduodenoscopy (~02/2013) +Mild gastritis, normal mucosa History of appendectomy (~06/2014) Open History of cholecystectomy (~02/2007) History of colonoscopy (~02/2013) ~2013--normal mucosa, but +internal hemorrhoids History of colonoscopy (~10/2017) Dr. Alva in [place]--recalled for age 49; normal appearing mucosa all biopsies (random) benign History of tonsillectomy (~02/2012) S/P inguinal hernia repair using synthetic patch (~10/19/19) left Family History Father , Black lung on certificate; also with significant addiction Substance abuse Anxiety Depression Hypertension Paternal Grandfather Diabetes Alcohol abuse Mother Anxiety Depression Hypertension Maternal Grandfather Alcohol abuse Maternal Grandmother Alcohol abuse Heart disease Pancreatic cancer Paternal Grandmother Alcohol abuse Social History Smoking/Tobacco Use Status: Never Smoking risk assessment performed?: Yes Alcohol Intake: current Alcohol Intake frequency: holidays/special occasions only Drug use: Daily Substance use type: marijuana Adopted: No Caregiver/Support person: No Foster care: No Household members: family Housing: house Communication Needs: None Do you need help understanding health information?: Rarely 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, [employer] Sexually active: Yes Do you think of yourself as: lesbian/ibarra/homosexual Current gender identity: male What type of physical activity do you participate in: walking Frequency: daily Seatbelt use: always Drive intox or ride w/intox 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: No Working smoke detector in home: Yes Fire extinguisher in home: Yes Firearms in home: No Do you feel safe at home: Yes Additional Social history: lives alone Meds Allergies and Home Medications Allergies Allergy/AdvReac Type Severity Reaction Status Date / Time emtricitabine [From Truvada] Allergy Intermediate N/V x2 Verified 07/18/22 06:32 days; migraine, throat swelling metoprolol AdvReac Severe severe Verified 07/18/22 06:32 body aches hydrocodone bitartrate AdvReac Intermediate Nausea Verified 07/18/22 06:32 [From Vicodin] oxycodone HCl [From Percocet] AdvReac Intermediate Nausea Verified 07/18/22 06:32 tenofovir [From Truvada] AdvReac Intermediate N/V x2 Verified 07/18/22 06:32 days; migraine Home Medications Medication Instructions Recorded Confirmed Type lisdexamfetamine 40 mg capsule 50 mg PO DAILY 09/20/19 07/18/22 History (Vean) metoclopramide HCl 10 mg tablet 10 mg PO Q6H PRN nausea and 01/25/22 07/18/22 Rx (Reglan) vomiting #7 tabs cabotegravir 600 mg/3 mL (200 600 mg IM [id number] 01/29/22 07/18/22 History mg/mL) IM suspension,extended release valsartan 80 mg tablet 80 mg PO DAILY 05/27/22 07/18/22 History allopurinol 100 mg tablet 100 mg PO DAILY 07/17/22 07/18/22 History colchicine 0.6 mg tablet 0.6 mg PO DAILY 07/17/22 07/18/22 History fluoxetine 10 mg capsule 10 mg PO DAILY 07/18/22 07/18/22 History Exam Const General: cooperative, healthy appearing and comfortable Orientation: awake and oriented x3 Eyes General: appearance normal, both eyes and all related structures Conjunctivae: conjunctivae normal Sclera: sclerae normal Resp Effort & Inspection: normal respiratory effort and able to speak in complete sentences Auscultation: clear to auscultation bilaterally Cardio Jugular venous pressure: no JVD Rate: regular rate Rhythm: regular rhythm Heart Sounds: S1 normal and S2 normal GI Inspection: non-distended Palpation: soft, no guarding, no hernias and nontender Auscultation: normal bowel sounds Other: Small cyst opening in the midline at the upper portion of the gluteal cleft Skin General skin exam: normal turgor Neuro General: patient alert, patient awake and patient oriented x3 Cognition: normal cognition Extrem Right lower extremity: no edema Left lower extremity: no edema
--- NOTE | 2022-07-17 18:54 | PDOC.DSDIS_ITS ---
Date of service: 07/18/22 Time of Service: 08:18 Discharge Plan Disposition Patient Disposition: Home Condition: Good Discharge Details Reason For Visit: Pilonidal cystectomy Attending Provider: Mulugeta Zurita Primary Care Provider: Robi Guevara Home Meds and New Rx's Prescriptions: Continued cabotegravir 600 mg/3 mL (200 mg/mL) suspension,extended release 600 mg IM [id number] valsartan 80 mg tablet 80 mg PO DAILY Vyvanse 40 mg capsule 50 mg PO DAILY metoclopramide HCl [Reglan] 10 mg tablet 10 mg PO Q6H PRN (Reason: nausea and vomiting) Qty: 7 0RF allopurinol 100 mg tablet 100 mg PO DAILY Patient Comments: 07/18/22 Pt stated new RX; hasnt started yet. colchicine 0.6 mg tablet 0.6 mg PO DAILY Patient Comments: 07/18/22 Pt stated new RX; hasnt started yet. fluoxetine 10 mg capsule 10 mg PO DAILY Discharge Instructions Instructions: Pilonidal Cyst Excision (GEN) Additional Instructions: 1. Resume all of your medications. 2. Ice packs or heating pads are fine to use for pain. 3. Okay to use tylenol and ibuprofen over the counter as needed. Use [] as needed for more severe pain. 4. Leave bandage in place. We will remove this in the office on the . If you notice the blinking green light changes colors, please notify the office 5. Shower with warm soapy water. Pat dry. 6. No soaking or tub baths until I see you in the office. 7. No heavy lifting until I see you in the office. 8.Call the office (or go directly to the emergency room after hours) if you notice any of the following: Develop chills (warm to touch), or if you have a thermometer and your temperature is above 101 Difficulty breathing or difficultly swallowing Persistent vomiting Any bleeding ? exceeding one tablespoon 9. Call your physician if the site where your intravenous was started becomes red, swollen, painful, and warm to touch. Referrals: Mulugeta Zurita MD [ [facility] STAFF PHYSICIAN] - (Follow-up with me on July 23 at 11:45 AM for bandage removal. This will be a quick visit.) Activity:: Activity as Tolerated Diet:: As Tolerated Discharge Orders Discharge Orders: Discharge Order (Routine); Ordered 07/17/22 Ordered By: Mulugeta Zurita DS: Diagnosis Discharge Diagnosis (1) Pilonidal cyst: Status: Acute Asessment and Plan: Follow-up in the office next week
--- NOTE | 2022-07-17 18:57 | W.PM.OP ---
Date of service: 07/18/22 Time of Service: 08:25 Operative Note Operative Note DATE OF PROCEDURE: 07/18/22 PRE-OP DIAGNOSIS: Pilonidal cyst POST-OP DIAGNOSIS: same PROCEDURE: Pilonidal cystectomy and primary closure SURGEON: Mulugeta Zurita [employer]UL[employer] SUPERVISOR: Tomasa Glynn ANESTHESIA TYPE: General LMA/ETT Refer to Anesthesia Record ESTIMATED BLOOD LOSS: 5 PATHOLOGY: other (Pilonidal cyst) COMPLICATIONS: None Patient was transported to: PACU Patient's condition: stable Indications: Curly is a 31-year-old male with a pilonidal cyst that was previously infected and required drainage. The cyst is painful, and has continuing intermittent drainage. Procedure Description: Patient was assisted into the prone position, and great care was taken to ensure his comfort and pad all of the points of contact. Next, anesthetic was initiated, and the sacrococcygeal area was prepped and draped in the usual fashion. As previously described, there was an area for his previous incision and drainage at the uppermost portion of his intergluteal cleft. This tracked caudally, and slightly towards the patient's left side. There was another punctate area of skin opening approximately 2 cm below this that extended straight downward. Local anesthetic was used to establish a generous field block. Next, the trajectory of the cyst was confirmed with lacrimal duct probes. I then made a elliptical incision around the previous incision and drainage site, down to and including the skin defect below this. The incision was cheated slightly towards the patient's right side to encompass the trajectory of the cyst. Dissection was continued down through the subcutaneous fat, and completely around the bottom of the pilonidal cyst. Once this was excised completely, the surgical site was carefully examined. There was minimal bleeding that was easily controlled with cautery. The wound bed was irrigated clean. The deep defect was closed with interrupted 2-0 Vicryl stitches, and the skin was approximated with nylon suture in a horizontal mattress fashion. Negative pressure dressing was then applied, the patient was allowed awaken from anesthetic, and assisted back to the supine position on a stretcher. The entire excision site was approximately 4 cm long by approximately 3 cm deep.
[2022-07-18 06:25] VITALS: BP 136/92; PULSE 86; RESP 16; TEMP 36.4; O2SAT 99
[2022-07-18] MEDS: Acetaminophen 500 MG TAB 1000 MG PO (07:02)
[2022-07-18] MEDS: Celecoxib 200 MG CAP PO (07:02)
[2022-07-18] MEDS: Gabapentin 300 MG CAP 600 MG PO (07:03)
--- NOTE | 2022-07-18 07:22 | W.ANESPRE ---
General Info Date of Service Date Performed: 07/18/22 Height: 5 ft 6 in Weight: 88.2 kg Body Mass Index (BMI): 31.4 Surgical Procedure: Operation Date: 07/18/22 07:40 Proposed Procedure Side Surgeon p Pilonidal Cyst Excision Mulugeta Zurita MD Actual Procedure Side Surgeon p Pilonidal Cyst Excision Not Applicable Mulugeta Zurita MD Pre-Op Diagnosis Post-Op Diagnosis Pilonidal cystectomy Pilonidal cystectomy Meds Allergies and Home Medications Allergies Allergy/AdvReac Type Severity Reaction Status Date / Time emtricitabine [From Truvada] Allergy Intermediate N/V x2 Verified 07/18/22 06:32 days; migraine, throat swelling metoprolol AdvReac Severe severe Verified 07/18/22 06:32 body aches hydrocodone bitartrate AdvReac Intermediate Nausea Verified 07/18/22 06:32 [From Vicodin] oxycodone HCl [From Percocet] AdvReac Intermediate Nausea Verified 07/18/22 06:32 tenofovir [From Truvada] AdvReac Intermediate N/V x2 Verified 07/18/22 06:32 days; migraine Home Medication Medication Instructions Recorded lisdexamfetamine 40 mg capsule 50 mg PO DAILY 09/20/19 (Vyvanse) metoclopramide HCl 10 mg tablet 10 mg PO Q6H PRN nausea and 01/25/22 (Reglan) vomiting #7 tabs cabotegravir 600 mg/3 mL (200 600 mg IM [id number] 01/29/22 mg/mL) IM suspension,extended release valsartan 80 mg tablet 80 mg PO DAILY 05/27/22 allopurinol 100 mg tablet 100 mg PO DAILY 07/17/22 colchicine 0.6 mg tablet 0.6 mg PO DAILY 07/17/22 fluoxetine 10 mg capsule 10 mg PO DAILY 07/18/22 Current Visit Medications: Current Medications Generic Name Dose Route Start Last Admin Trade Name Freq PRN Reason Stop Dose Admin Acetaminophen 1,000 mg 07/18/22 06:00 07/18/22 07:02 Acetaminophen 500 Mg Tab PO 07/18/22 23:59 1,000 mg PREOP ADELAIDA Administration Celecoxib 200 mg 07/18/22 06:00 07/18/22 07:02 Celecoxib 200 Mg Cap PO 07/18/22 23:59 200 mg PREOP ADELAIDA Administration Gabapentin 600 mg 07/18/22 06:00 07/18/22 07:03 Gabapentin 300 Mg Cap PO 07/18/22 23:59 600 mg PREOP ADELAIDA Administration Hydromorphone HCl 0.2 mg 07/17/22 18:56 Hydromorphone 2 Mg/Ml Syr IVP 08/16/22 18:55 Q1H PRN PRN Ringer's Solution 1,000 mls @ 80 mls/hr 07/18/22 06:00 IV 07/18/22 23:59 INFUSION ADELAIDA IV Miscellaneous Supplies 1 each 07/18/22 06:00 Iv Access IV 07/18/22 23:59 DIRECTED ADELAIDA Sodium Chloride 0 ml 07/18/22 06:00 Normal Saline Flush 10 Ml Syr IV 07/18/22 23:59 PRN PRN Sodium Chloride 0 ml 07/18/22 06:00 Normal Saline 10 Ml Vial IJ 07/18/22 23:59 DIRECTED PRN Sterile Water 0 ml 07/18/22 06:00 Water,Injection,Sterile 10 Ml Vial IJ 07/18/22 23:59 DIRECTED PRN Tramadol HCl 100 mg 07/17/22 18:56 Tramadol 50 Mg Tab PO 08/16/22 18:55 Q6H PRN PRN Pain PFSH Active Problems Active Problems: Problem Status Onset Code Pilonidal cyst L05.91 Encounter for screening for other viral diseases Z11.59 Nausea & vomiting R11.2 Gastroparesis K31.84 Medical History Medical History ADHD 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 Cameron Has been discharged from oncology services as of 2021. Carpal tunnel syndrome on both sides (10/03/15) s/p b/l release which resolved issue Depression with anxiety Long history; Fluoxetine; Wellbutrin (helpful 2012), Buspar; episodes of panice with Clonazepam RX'ed long-term historically and uses very seldom per medical records Gastroparesis RX Metoclopremide Heartburn Long-term Pantoprazole, switched to safer H2 rishabh 03/2019 Hypertension Lisinopril 10mg (used to also be on Chlorthalidone 50mg daily) IBS (irritable bowel syndrome) Dx'ed ~2011; Colestid helpful for diarrhea; Levsin & Bentyl used 2014 Left inguinal hernia Migraine without aura and without status migrainosus, not intractable (10/03/15) Nonalcoholic fatty liver disease LIZBETH (obstructive sleep apnea) ran out of supplies for CPAP Renal insufficiency [facility] History Comments:: Allisonvictor manuel daily Surgical History Surgical History H/O carpal tunnel repair (~02/2015) B/L H/O esophagogastroduodenoscopy (~02/2013) +Mild gastritis, normal mucosa History of appendectomy (~06/2014) Open History of cholecystectomy (~02/2007) History of colonoscopy (~02/2013) ~2013--normal mucosa, but +internal hemorrhoids History of colonoscopy (~10/2017) Dr. Alva in [place]--recalled for age 49; normal appearing mucosa all biopsies (random) benign History of tonsillectomy (~02/2012) S/P inguinal hernia repair using synthetic patch (~10/19/19) left Tobacco Smoking/Tobacco Use Status: Never Alcohol Alcohol Intake: current Alcohol intake frequency: holidays/special occasions only Substance Use Substance use: Daily Substance use type: marijuana Vital Signs and Lab Results Vital Signs Most Recent Vital Signs in EMR: Most Recent Vital Signs Temp Pulse Resp BP Pulse Ox 36.4 C L 86 16 136/92 H 99 07/18/22 06:25 07/18/22 06:25 07/18/22 06:25 07/18/22 06:25 07/18/22 06:25 Lab Results Blood Type / Crossmatch: No Data to Display Complete Blood Count: No Data to Display Complete Metabolic Panel: No Data to Display Liver Function Panel: No Data to Display Coagulation Panel: No Data to Display Cardiac Panel: No Data to Display Arterial Blood Gas: No Data to Display Venous Blood Gas: No Data to Display Pancreas Panel: No Data to Display Thyroid Panel: No Data to Display Infectious Disease: HIV (1&2) Ag and Ab, 4th Generation Negative (Negative) 07/14/22 15:30 Blood Cultures: No Data to Display Toxicology Panel: No Data to Display Anesthesia Assessment and Plan Anesthesia History Personal History: No History of Anesthesia Complications Family History: No Family History of Anesthesia Complications Exercise Tolerance Exercise Tolerance: Metabolic Equivalents>4 Pertinent Negatives Pertinent Negatives: No Symptoms of GERD Cardiac & Pulmonary Exam Cardiac Exam: Normal S1/S2 Heart Sounds Pulmonary Exam: Clear Bilateral Breath Sounds Implantable Cardiac Device Does patient have a Pacemaker or an ICD?: No Airway Exam Known Difficult Airway: No Mallampati Class: 2 Mouth Opening: Normal (> 3cm) Thyromental Distance: Greater than 3 cm Neck Range of Motion: Full ROM Neck Circumference: Normal Teeth Condition: Normal Dentition ASA Classification ASA Score: ASA 2 Emergency Case?: No NPO Status NPO Status: NPO Clears >2 hours, Solids >8 hours Anesthesia Plan Resuscitation Status: Full Code Anesthesia Technique: General Anesthesia Airway Planned: Natural Airway Monitors Used: Standard Monitors
[2022-07-18 07:24] VITALS: BMI 31.4
[2022-07-18] MEDS: Lactated Ringers 1,000 ML 80 ML IV (07:35)
--- NOTE | 2022-07-18 08:08 | PILONIDAL_PTH ---
PATIENT: Curly Cline LOC: [facility] U#:[id number] AGE/SX: 31/M ROOM: RE07/18/[address]: Mulugeta Zurita MD : 1990 BED: DIS: 07/18/2022 SPEC #: [id number] RECD: 07/18/22 12:37 STATUS: [facility] #: [id number] [facility]: 07/18/22 08:[address]: Mulugeta Zurita DEPT: Surgical Specimen RECD BY: Jessica Hodgson ENTERED: 07/18/22 12:38 SP TYPE: PILONIDAL OTHR DR: Robi Guevara Tissues: 1 - PILONIDAL CYST/SINUS Procedures: GROSS AND MICRO LEVEL 3 Comments: [id number]
[2022-07-18 08:32] VITALS: BP 117/76; PULSE 77; RESP 16; TEMP 36.4; O2SAT 98
--- NOTE | 2022-07-18 08:40 | W.ANESPOSTOP ---
Postoperative Evaluation Date, Time and Location Date Performed: 07/18/22 Time Performed: 08:40 Patient Location: Day Surgery Unit Vital Signs Most Recent Imported Vital Signs: Most Recent Vital Signs Temp Pulse Resp BP Pulse Ox 36.4 C L 86 16 136/92 H 99 07/18/22 06:25 07/18/22 06:25 07/18/22 06:25 07/18/22 06:25 07/18/22 06:25 Pain Score Most Recent Pain Score: Most Recent Pain Score Pain Level 0 07/18/22 06:25 Assessment Mental Status: Awake (Alert & Oriented to Patient Baseline) Airway and Respiratory Function: Patent airway with normal (patient baseline) respiratory exam Cardiovascular Function: Hemodynamically Stable Hydration Status: Adequately Hydrated Nausea & Vomiting: No Nausea or Vomiting Pain: Pt. Denies Any Pain Peripheral Nerve Block: Patient did not receive a nerve block
[2022-07-18 09:02] VITALS: BP 120/76; PULSE 72; RESP 18; TEMP 36.5; O2SAT 99
[2022-07-18 10:03] VITALS: BP 107/68; PULSE 85; RESP 16; TEMP 36.5; O2SAT 100
== END 2022-07-18 10:35 | disposition home or self-care (01) ==
PROVIDERS: PCP Family Medicine; Visit Provider Surgery
PROC: (CPT 11770; principal; 2022-07-18 07:30)
DX: L05.91 Pilonidal cyst without abscess (principal); F41.8 Other specified anxiety disorders; I10 Essential (primary) hypertension; K31.84 Gastroparesis; F90.9 Attention-deficit hyperactivity disorder, unspecified type; Z85.030 Personal history of malignant carcinoid tumor of large intestine
CPT/HCPCS: 11770; 88304; J1100; J1885; J2001; J2250; J2405; J2704; J3010

== ENCOUNTER 2022-09-15 15:46 | Outpatient (REF) | payer OTHER, SELFPAY ==
[2022-09-15 16:46] LABS: Uric Acid 6.8 mg/dL (3.5-7.2)
== END 2022-09-15 15:47 | disposition home or self-care (01) ==
LOC: NCHCN 15:46
PROVIDERS: PCP Family Medicine; Visit Provider Family Medicine
DX: M10.9 Gout, unspecified (principal)
CPT/HCPCS: 84550

== ENCOUNTER 2022-10-13 18:10 | Outpatient (REF) | payer OTHER, SELFPAY ==
[2022-10-13 18:37] LABS: Uric Acid 5.7 mg/dL (3.5-7.2)
[2022-10-15 09:52] LABS: HIV-1/2 Ag & Ab Screen Negative (Negative)
== END 2022-10-13 18:11 | disposition home or self-care (01) ==
LOC: NCHCN 18:10
PROVIDERS: PCP Family Medicine; Visit Provider Family Medicine
DX: M10.9 Gout, unspecified (principal); Z00.00 Encounter for general adult medical examination without abnormal findings; Z11.4 Encounter for screening for human immunodeficiency virus [HIV]
CPT/HCPCS: 87389; 84550

== ENCOUNTER → 2022-10-17 15:04 | Outpatient (CLI) | payer OTHER, SELFPAY ==
--- NOTE | 2022-10-17 | DI.RAD_ITS ---
Exam(s) XR SHOULDER RT COMPLETE 2+V EXAM: XR SHOULDER RT COMPLETE 2+V CLINICAL HISTORY: PAIN RT SHOULDER M25.511 EVAL JOINT SPACE ? CALCIFIC TENDINITIS. TECHNIQUE: 2D digital imaging was performed of the right shoulder. Five images were obtained. AP, Grashey, Y-view and axillary views were obtained. COMPARISON: No exams were available for comparison FINDINGS: BONES: No acute fracture is present. No bony destructive lesion is seen. JOINTS: No dislocation present. SOFT TISSUE: Normal. No soft tissue calcifications are seen. IMPRESSION: Unremarkable radiographs of the right shoulder. DATA REPOSITORY: RADIATION DOSE DELIVERED:
== END ==
PROVIDERS: PCP Family Medicine; Visit Provider Physician Assistant Medical
DX: M25.511 Pain in right shoulder (principal)
CPT/HCPCS: 73030

== ENCOUNTER 2022-11-13 13:03 | Emergency (ER) | payer OTHER, SELFPAY ==
[2022-11-13 13:06] VITALS: BP 142/102; PULSE 100; RESP 14; TEMP 36.2; O2SAT 100
--- NOTE | 2022-11-13 14:02 | W.ED.GENAD ---
Discharge Plan Disposition Patient Disposition: Home Condition: Good Discharge Details Clinical Impression: Acute shoulder pain Primary Care Provider: Robi Guevara ED Provider: Cinthya Smith Home Meds and New Rx's Prescriptions: New oxycodone 5 mg tablet 2.5 mg PO QHS PRNQty: 4 0RF No Action cabotegravir 600 mg/3 mL (200 mg/mL) suspension,extended release 600 mg IM [id number] valsartan 80 mg tablet 80 mg PO DAILY Vyvanse 40 mg capsule 50 mg PO DAILY metoclopramide HCl [Reglan] 10 mg tablet 10 mg PO Q6H PRN (Reason: nausea and vomiting) Qty: 7 0RF allopurinol 100 mg tablet 100 mg PO DAILY Patient Comments: 07/18/22 Pt stated new RX; hasnt started yet. colchicine (gout) 0.6 mg tablet 0.6 mg PO DAILY Patient Comments: 07/18/22 Pt stated new RX; hasnt started yet. fluoxetine 10 mg capsule 10 mg PO DAILY tramadol 50 mg tablet 50 mg PO Q8H PRN (Reason: pain) Qty: 12 0RF Rx Instructions: Take 1 to 2 tablets by mouth up to every 8 hours if needed for severe pain. Discharge Instructions Instructions: Shoulder Pain (ED) Additional Instructions: Take tylenol and iburpofen over the counter as needed for pain; follow the directions on the bottle. You can take 1/2 tablet of oxycodone at night for breakthrough pain. Do not drive for 6-8 hours after taking this medication. Followup with orthopedics- they will call you to schedule an appointment. Return to the emergency department for new or worsening symptoms, including weakness, inability to use your arm, uncontrolled pain, or if you have any other concerns. Referrals: [facility] [Provider Group] Robi Guevara [Primary Care Provider] - Medical Decision Making 32yo male presenting with two months of radiating right shoulder pain, unrelieeved by OTC meds or flexeril, reports normal XRays, orthopedic appt scheduled and has referral for MRI. Pain continues and is severe, no acute changes in symptoms. Vital signs reassuring, pain with passive ROM at shoulder. No warmth or effusion. Reliable historian who reports normal xrays recently, will not repeat here today. Normal neurological exam; would not pursue emergent MRI. Advised patient to followup on outpatient plan. Will treat with toradol here and placed in sling for comfort as this position seems to improve his pain. Will expedite orthopedic referral, send short course of low-dose oxycodone (2.5mg HS) for pain. Discharged home; discharge instructions including return precautions were reviewed with patient who verbalized understanding. All questions were answered and they are in full agreement with the plan. HPI General Mode of arrival: ambulatory. Date/Time Provider Initiated Documentation: 11/13/22 13:14. Limitations to Documentation: no limitations. Information obtained by: patient. HPI Narrative: 32yo male presenting with two months of right shoulder pain. Pain is sharp, radiates from his scapula down to his elbow and wrist, and is worse with activity. Pain has been persistent and not relieved by home OTC medications. No provoking event, no trauma or over-exertion prior to onset of symptoms one morning two months ago. Not acutely worse today, just persistent. Has tried flexeril without improvement, been seen at urgent care and chiropractory. Reports having normal xrays of his right shoulder. No lower extremity symptoms. Has orthopedic appointment scheduled three weeks from now and prescription for MRI. Related Data Home Medications Medication Instructions Recorded Confirmed lisdexamfetamine 40 mg capsule 50 mg PO DAILY 09/20/19 08/06/22 (Vyvanse) metoclopramide HCl 10 mg tablet 10 mg PO Q6H PRN nausea and 01/25/22 08/06/22 (Reglan) vomiting #7 tabs cabotegravir 600 mg/3 mL (200 600 mg IM [id number] 01/29/22 08/06/22 mg/mL) IM suspension,extended release valsartan 80 mg tablet 80 mg PO DAILY 05/27/22 08/06/22 allopurinol 100 mg tablet 100 mg PO DAILY 07/17/22 08/06/22 colchicine (gout) 0.6 mg tablet 0.6 mg PO DAILY 07/17/22 08/06/22 fluoxetine 10 mg capsule 10 mg PO DAILY 07/18/22 08/06/22 tramadol 50 mg tablet 50 mg PO Q8H PRN pain #12 tabs 07/18/22 08/06/22 oxycodone 5 mg tablet 2.5 mg PO QHS PRN #4 tabs 11/13/22 Previous Rx's Medication Instructions Recorded metoclopramide HCl 10 mg tablet 10 mg PO Q6H PRN nausea and 01/25/22 (Reglan) vomiting #7 tabs tramadol 50 mg tablet 50 mg PO Q8H PRN pain #12 tabs 07/18/22 oxycodone 5 mg tablet 2.5 mg PO QHS PRN #4 tabs 11/13/22 Allergies Allergy/AdvReac Type Severity Reaction Status Date / Time emtricitabine [From Truvada] Allergy Intermediate N/V x2 Verified 08/06/22 08:46 days; migraine, throat swelling metoprolol AdvReac Severe severe Verified 08/06/22 08:46 body aches hydrocodone bitartrate AdvReac Intermediate Nausea Verified 08/06/22 08:46 [From Vicodin] oxycodone HCl [From Percocet] AdvReac Intermediate Nausea Verified 08/06/22 08:46 tenofovir [From Truvada] AdvReac Intermediate N/V x2 Verified 08/06/22 08:46 days; migraine General Stated Complaint: Orthopedic AILYN: 4 Review of Systems Narrative: see HPI PFSH All Active Problems (Updated 11/13/22 @ 14:00 by Cinthya Smith MD) Acute shoulder pain (Acute) Encounter for screening for other viral diseases (Acute) Nausea & vomiting (Acute) Gastroparesis (Acute) Medical History (Updated 11/13/22 @ 14:00 by Cinthya Smith MD) ADHD 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 Cameron Has been discharged from oncology services as of 2021. Carpal tunnel syndrome on both sides (10/03/15) s/p b/l release which resolved issue Depression with anxiety Long history; Fluoxetine; Wellbutrin (helpful 2012), Buspar; episodes of panice with Clonazepam RX'ed long-term historically and uses very seldom per medical records Gastroparesis RX Metoclopremide Heartburn Long-term Pantoprazole, switched to safer H2 rishabh 03/2019 Hypertension Lisinopril 10mg (used to also be on Chlorthalidone 50mg daily) IBS (irritable bowel syndrome) Dx'ed ~2011; Colestid helpful for diarrhea; Levsin & Bentyl used 2014 Left inguinal hernia Migraine without aura and without status migrainosus, not intractable (10/03/15) Nonalcoholic fatty liver disease LIZBETH (obstructive sleep apnea) ran out of supplies for CPAP Pilonidal cyst Renal insufficiency Shingles Surgical History H/O carpal tunnel repair (~02/2015) B/L H/O esophagogastroduodenoscopy (~02/2013) +Mild gastritis, normal mucosa History of appendectomy (~06/2014) Open History of cholecystectomy (~02/2007) History of colonoscopy (~02/2013) ~2013--normal mucosa, but +internal hemorrhoids History of colonoscopy (~10/2017) Dr. Alva in [place]--recalled for age 49; normal appearing mucosa all biopsies (random) benign History of tonsillectomy (~02/2012) S/P inguinal hernia repair using synthetic patch (~10/19/19) left Family History Father , Black lung on certificate; also with significant addiction Substance abuse Anxiety Depression Hypertension Paternal Grandfather Diabetes Alcohol abuse Mother Anxiety Depression Hypertension Maternal Grandfather Alcohol abuse Maternal Grandmother Alcohol abuse Heart disease Pancreatic cancer Paternal Grandmother Alcohol abuse Social History Smoking/Tobacco Use Status: Never Smoking risk assessment performed?: Yes Alcohol Intake: current Alcohol Intake frequency: holidays/special occasions only Drug use: Daily Substance use type: marijuana Adopted: No Caregiver/Support person: No Foster care: No Household members: family Housing: house Communication Needs: None Do you need help understanding health information?: Rarely 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 Head: Normocephalic, atraumatic Neck: Trachea midline, Neck supple. No midline cervical tenderness. Cardiac: No cyanosis. Resp: No respiratory distress. Speaking in full sentences. Abd: Non-distended Extremities: No deformities. No peripheral edema. Right posterior shoulder TTP, pain with passive ROM at shoulder. No pain or tenderness at elbow or wrist. Sensation, pulses, and capillary refill intact RUE. Neurologic: GCS 15. Moves all extremities freely against gravity Course Vital Signs Vital signs: Vital Signs Temperature 36.2 C L 11/13/22 13:06 Pulse 100 H 11/13/22 13:06 Respiratory Rate 14 11/13/22 13:06 Blood Pressure 142/102 H 11/13/22 13:06 Pulse Oximetry 100 11/13/22 13:06 Temperature 36.2 C L 11/13/22 13:06 Temperature Source Skin 11/13/22 13:06 Pulse 100 H 11/13/22 13:06 Respiratory Rate 14 11/13/22 13:06 Blood Pressure 142/102 H 11/13/22 13:06 Blood Pressure Position Sitting 11/13/22 13:06 Pulse Oximetry 100 11/13/22 13:06 Oxygen Delivery Method Room Air 11/13/22 13:06 Oxygen Flow Rate 0 11/13/22 13:06 Pain Level 8 11/13/22 13:06
[2022-11-13] MEDS: Acetaminophen 325 MG TAB 650 MG PO (14:10)
[2022-11-13] MEDS: Ketorolac 15 MG/ML VIAL IM (14:10)
== END 2022-11-13 14:12 | disposition home or self-care (01) ==
PROVIDERS: Emergency Provider Student in an Organized Health Care Education/Training Program; PCP Family Medicine
DX: M25.511 Pain in right shoulder (principal); I10 Essential (primary) hypertension
CPT/HCPCS: 96372; 99283; 99282; J1885

== ENCOUNTER 2022-11-14 07:56 | Emergency (ER) | payer OTHER, SELFPAY ==
[2022-11-14 07:59] VITALS: BP 145/120; PULSE 116; RESP 22; TEMP 36.5; O2SAT 100
--- NOTE | 2022-11-14 08:03 | W.ED.GENAD ---
Discharge Plan Disposition Patient Disposition: Home Discharge Details Clinical Impression: Chronic right shoulder pain Primary Care Provider: Robi Guevara ED Provider: Robi Benitez Home Meds and New Rx's Prescriptions: New diazepam 5 mg tablet 5 mg PO TID PRNQty: 3 0RF prednisone 20 mg tablet 40 mg PO DAILY 4 Days Qty: 8 0RF Rx Instructions: days 11-21 of therapy Continued cabotegravir 600 mg/3 mL (200 mg/mL) suspension,extended release 600 mg IM [id number] valsartan 80 mg tablet 80 mg PO DAILY lisdexamfetamine [Vyvanse] 40 mg capsule 50 mg PO DAILY metoclopramide HCl [Reglan] 10 mg tablet 10 mg PO Q6H PRN (Reason: nausea and vomiting) Qty: 7 0RF allopurinol 100 mg tablet 100 mg PO DAILY Patient Comments: 07/18/22 Pt stated new RX; hasnt started yet. fluoxetine 10 mg capsule 10 mg PO DAILY Discontinued oxycodone 5 mg tablet 2.5 mg PO QHS PRNQty: 4 0RF Discharge Instructions Instructions: Shoulder Pain (ED) Additional Instructions: You were seen in the emergency department for your shoulder pain. Your x-ray showed no signs of any abnormalities in your chest. Please discontinue your oxycodone tablet and please return any additional tablets you have to the pharmacy for disposal. Please take this prescription for diazepam and use 3 times a day as needed. Please do not drink alcohol or operate any machinery or drive any vehicles after taking diazepam. Please return to the emergency department if you develop any fevers color changes in your right hand or lose function of your right hand. For your pain please take medications as follows: 1. Take acetaminophen (Tylenol), 1,000 mg (two 500 mg tabs) every 6 hours 2. Take ibuprofen (Advil), 400 mg every 6 hours. Discharge Data Discharge Date/Time-TO BE ENTERED AT DEPARTURE: 11/14/22 12:00 Medical Decision Making HPI This is a [id number] 32-year-old male with indolent onset right shoulder pain. Patient reports that he first developed pain 2 months ago. He says that he woke up and had an ache in his right shoulder. He initially went to urgent care a chiropractor had several massages attempted treatment with Lidoderm patches and steroids. He was seen yesterday in the emergency department and received a short course of oxycodone. He reports taking oxycodone this morning and says that this did not help his pain. He has last taken acetaminophen and ibuprofen last night. He says that his pain radiates down to his right elbow and up into the right side of his neck. He has been nauseous this morning but on review of systems denies vomiting fevers chest pain shortness of breath PE and DVT. He has not had any tick bites to his right shoulder or anywhere in his body. He has not taken any falls and denies any trauma to his right shoulder. 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 He denies routine tobacco, ethanol, and illicits. Exam General: Well-appearing in no acute distress speaking in complete sentences. Head: Normocephalic, atraumatic. Eye: Extraocular eye movements intact. No conjunctival injection. No scleral icterus. Ear, nose, mouth, throat: Grossly normal inspection. Normal voice, handling secretions normally. Neck: Trachea midline. Cardiovascular: Well-perfused distal extremities. Respiratory: Nonlabored respiration. Gastrointestinal: Nondistended abdomen. Musculoskeletal: No edema. Moving all 4 extremities spontaneously. Right shoulder on inspection with no obvious abnormalities. No significant erythema. No rash to right shoulder. Patient is able to touch his right hand to his contralateral left shoulder. He can flex his right shoulder 100 degrees. He can extend his right shoulder to approximately 15 degrees. He can abduct his right shoulder approximately 95 degrees. He has full range of motion his elbow and forearm on the right. He has intact sensory and motor function in his right hand across the radial, median, and ulnar distributions. 2+ right radial pulse. Cap refill less than 2 seconds in the right fingertips. Skin: Normal for age and race, grossly normal temperature and turgor. No acute rash. Neurologic: Alert and appropriate, no apparent acute deficits. Psychiatric: Mood and manner are appropriate. Grooming and personal hygiene are appropriate. MDM This is uncomfortable but overall well-appearing normothermic but tachycardic 32-year-old male with atraumatic persistent right shoulder pain for the past 1 month with mild associated hand numbness concerning for the possibility of thoracic outlet syndrome. Patient is not a weightlifter and has no signs of engorgement to suggest venous thoracic outlet syndrome. No pain out of proportion to suggest necrotizing soft tissue infection. No limitations to range of motion and so my suspicion is exceedingly low for dislocation. In the absence of trauma doubt fracture. No obvious calcifications on previous plain film. Based on the patient's age my suspicion for adhesive capsulitis is low. No history of malignancy to suggest increased risk for pathological fracture. Patient and I discussed pendulum exercises which she had been performing. In the absence of any trauma pain and in the setting of a reassuring negative x-ray last month no indication for repeating right shoulder film. No signs of joint erythema nor swelling and patient is not an IV drug user so my suspicion for septic joint is exceedingly low. No reported history of tick bites so my suspicion for Lyme arthritis is exceedingly low. Patient has intact pulses and sensorimotor function in his right hand making my suspicion low for neurogenic thoracic outlet syndrome. Furthermore in the absence of any pallor or color changes in the hands or fingers my suspicion for thoracic outlet syndrome is low. Will obtain x-ray to screen for cervical rib, treat with diazepam acetaminophen and ibuprofen prior to having physical therapy evaluate the patient. Patient reports he does have orthopedic follow-up but it is not until December 03. I do not feel that the patient requires an emergent MRI at this point time as my suspicion is exceedingly low for CVA. Given no significant weakness I am not suspicious for multiple sclerosis. 9:27 AM Patient felt mildly improved following diazepam. I counseled him on discontinuing his oxycodone. I advised him to bring his extra oxycodone tablets to the pharmacy at [facility] for disposal. I counseled him on safe use of diazepam and avoiding alcohol motor vehicles and any heavy equipment after taking diazepam. We will have PT evaluate him prior to anticipated discharge. 11:35 AM Physical therapy evaluated the patient in the ED and was concerned about the possibility of cervical radiculopathy for which they advised repeat course of steroids. They will arrange outpatient follow-up. Will discharge on 5-day burst of prednisone at this 40 mg. We discussed return indications including any fevers any color changes in his right hand or any swelling of his right shoulder. He understood his return indications we will proceed with empiric trial of expectant outpatient management. HPI General Date/Time Provider Initiated Documentation: 11/14/22 08:03. Related Data Home Medications Medication Instructions Recorded Confirmed lisdexamfetamine 40 mg capsule 50 mg PO DAILY 09/20/19 11/14/22 (Vyvanse) metoclopramide HCl 10 mg tablet 10 mg PO Q6H PRN nausea and 01/25/22 11/14/22 (Reglan) vomiting #7 tabs cabotegravir 600 mg/3 mL (200 600 mg IM [id number] 01/29/22 11/14/22 mg/mL) IM suspension,extended release valsartan 80 mg tablet 80 mg PO DAILY 05/27/22 11/14/22 allopurinol 100 mg tablet 100 mg PO DAILY 07/17/22 11/14/22 fluoxetine 10 mg capsule 10 mg PO DAILY 07/18/22 11/14/22 diazepam 5 mg tablet 5 mg PO TID PRN #3 tabs 11/14/22 prednisone 20 mg tablet 40 mg PO DAILY 4 days #8 tabs 11/14/22 Previous Rx's Medication Instructions Recorded metoclopramide HCl 10 mg tablet 10 mg PO Q6H PRN nausea and 01/25/22 (Reglan) vomiting #7 tabs diazepam 5 mg tablet 5 mg PO TID PRN #3 tabs 11/14/22 prednisone 20 mg tablet 40 mg PO DAILY 4 days #8 tabs 11/14/22 Allergies Allergy/AdvReac Type Severity Reaction Status Date / Time emtricitabine [From Truvada] Allergy Intermediate N/V x2 Verified 11/14/22 08:01 days; migraine, throat swelling metoprolol AdvReac Severe severe Verified 11/14/22 08:01 body aches hydrocodone bitartrate AdvReac Intermediate Nausea Verified 11/14/22 08:01 [From Vicodin] oxycodone HCl [From Percocet] AdvReac Intermediate Nausea Verified 11/14/22 08:01 tenofovir [From Truvada] AdvReac Intermediate N/V x2 Verified 11/14/22 08:01 days; migraine General Stated Complaint: Orthopedic AILYN: 4 PFSH All Active Problems (Updated 11/14/22 @ 09:25 by Robi Benitez MD) Acute shoulder pain (Acute) Chronic right shoulder pain (Acute) Encounter for screening for other viral diseases (Acute) Nausea & vomiting (Acute) Gastroparesis (Acute) Medical History (Updated 11/14/22 @ 09:25 by Robi Benitez MD) ADHD 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 Cameron Has been discharged from oncology services as of 2021. Carpal tunnel syndrome on both sides (10/03/15) s/p b/l release which resolved issue Depression with anxiety Long history; Fluoxetine; Wellbutrin (helpful 2012), Buspar; episodes of panice with Clonazepam RX'ed long-term historically and uses very seldom per medical records Gastroparesis RX Metoclopremide Heartburn Long-term Pantoprazole, switched to safer H2 rishabh 03/2019 Hypertension Lisinopril 10mg (used to also be on Chlorthalidone 50mg daily) IBS (irritable bowel syndrome) Dx'ed ~2011; Colestid helpful for diarrhea; Levsin & Bentyl used 2014 Left inguinal hernia Migraine without aura and without status migrainosus, not intractable (10/03/15) Nonalcoholic fatty liver disease LIZBETH (obstructive sleep apnea) ran out of supplies for CPAP Pilonidal cyst Renal insufficiency Shingles Surgical History H/O carpal tunnel repair (~02/2015) B/L H/O esophagogastroduodenoscopy (~02/2013) +Mild gastritis, normal mucosa History of appendectomy (~06/2014) Open History of cholecystectomy (~02/2007) History of colonoscopy (~02/2013) ~2013--normal mucosa, but +internal hemorrhoids History of colonoscopy (~10/2017) Dr. Alva in [place]--recalled for age 49; normal appearing mucosa all biopsies (random) benign History of tonsillectomy (~02/2012) S/P inguinal hernia repair using synthetic patch (~10/19/19) left Family History Father , Black lung on certificate; also with significant addiction Substance abuse Anxiety Depression Hypertension Paternal Grandfather Diabetes Alcohol abuse Mother Anxiety Depression Hypertension Maternal Grandfather Alcohol abuse Maternal Grandmother Alcohol abuse Heart disease Pancreatic cancer Paternal Grandmother Alcohol abuse Social History Smoking/Tobacco Use Status: Never Smoking risk assessment performed?: Yes Alcohol Intake: current Alcohol Intake frequency: holidays/special occasions only Drug use: Daily Substance use type: marijuana Adopted: No Caregiver/Support person: No Foster care: No Household members: family Housing: house Communication Needs: None Do you need help understanding health information?: Rarely 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[employer], [employer] Sexually active: Yes Do you think of yourself as: lesbian/ibarra/homosexual Current gender identity: male What type of physical activity do you participate in: walking Frequency: daily Seatbelt use: always Drive intox or ride w/intox car pick up driver: No Working smoke detector in home: Yes Fire extinguisher in home: Yes Firearms in home: No Do you feel safe at home: Yes Additional Social history: lives alone Course Vital Signs Vital signs: Vital Signs Temperature 36.5 C 11/14/22 07:59 Pulse 116 H 11/14/22 07:59 Respiratory Rate 22 11/14/22 07:59 Blood Pressure 145/120 H 11/14/22 07:59 Pulse Oximetry 100 11/14/22 07:59 Temperature 36.5 C 11/14/22 07:59 Temperature Source Oral 11/14/22 07:59 Pulse 116 H 11/14/22 07:59 Respiratory Rate 22 11/14/22 07:59 Blood Pressure 145/120 H 11/14/22 07:59 Blood Pressure Position Sitting 11/14/22 07:59 Pulse Oximetry 100 11/14/22 07:59 Oxygen Delivery Method Room Air 11/14/22 07:59 Oxygen Flow Rate 0 11/14/22 07:59 Pain Level 10 11/14/22 07:59
[2022-11-14] MEDS: diazePAM 5 MG TAB PO (08:25)
[2022-11-14] MEDS: Acetaminophen 500 MG TAB 1000 MG PO (08:25)
[2022-11-14] MEDS: Ibuprofen 600 MG TAB PO (08:26)
--- NOTE | 2022-11-14 08:39 | DI.RAD_ITS ---
Exam(s) XR CHEST 2V PA LATERAL EXAM: XR CHEST 2V PA LATERAL CLINICAL HISTORY: Right shoulder pain hand numbness? Cervical rib TECHNIQUE: 2D digital imaging was performed. COMPARISON: CR CHEST 2 VIEWS PA,LAT from 02/22/2017 FINDINGS: HEART: Normal size. Aorta: Not dilated. PULMONARY VASCULATURE: Normal. LUNGS: Clear. PLEURAL SPACE: No pleural effusion or pneumothorax. BONE:Unremarkable for age. No evidence of cervical rib. IMPRESSION: No acute abnormality. DATA REPOSITORY: RADIATION DOSE DELIVERED:
[2022-11-14 09:45] VITALS: BP 138/92; PULSE 90; O2SAT 97
[2022-11-14] MEDS: diazePAM 2 MG TAB PO (10:18)
--- NOTE | 2022-11-14 11:42 | IN_ITS ---
PT Notes Emergency Room Physical Therapy Evaluation Date: 11/14/22 Referring Doctor: Dr. Benitez PT Orders: PT CONSULT: atraumatic right shoulder pain Precautions: standard Patient Profile/Admitting Diagnosis: Curly is seen in the Emergency Room for consultation re: right shoulder pain. 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 Active and independent at baseline. Current Functional Limitations: Unable to tolerate sitting or standing > a couple of minutes. Equipment Owned/DME: none Subjective: Curly reports insidious onset pain beginning about 2 months ago. Symptoms have gradually worsened over that time, with pain escalating this morning to an intolerable range without any identifiable exacerbating event. He describes pain along the right shoulder pain, with severe pain and tingling into right elbow, forearm and hand. Relief in supine position, or when resting forearm on head. Denies pain with arm movements. Previous treatment has included healthcare recruiter which included cervical manipulation, massage, and TENS. He had a 5-day course of Prednisone that he completed 4 days ago. Objective: General Observation: Resting on gurney, right hand supported behind head in ER position of right shoulder. Pleasant and cooperative, although tearful with movement into upright position. Slow and cautious with all bed mobility and transfers. Mental Status: A&O. Cooperative throughout. Pain: 10/10 ROM: Right Upper Extremity: Shoulder flexion full and painfree. Shoulder IR/ER all WNL. Left Upper Extremity: WFL Cervical motion severely restricted into flexion and extension, with approx 30* arc of motion. Rotation is full bilat, although with exacerbation of RUE pain with right rot. Sidebending full to the left, 10* only to the right with UE symptoms. Strength: Right Upper Extremity: Upper trap 5/5. Shoulder AB 5/5. Shoulder IR 4+/5. Shoulder ER 5/5. Biceps 5/5. Wrist extension 5/5. Hand intrinsics 5/5. Independent Crop Consultant is strong and equal. Left Upper Extremity: Upper trap 5/5. Shoulder AB 5/5. Shoulder IR 4+/5. Shoulder ER 5/5. Biceps 5/5. Wrist extension 5/5. Hand intrinsics 5/5. Independent Crop Consultant is strong and equal. Sensation: Diminished sensation (reports tingly) in C5-6 pattern on the right. Bed Mobility/Transfers: Independent with all bed mobility, although with slow, cautious completion and sharply increasing pain in sitting position. Special Test: Spurling's Test: (+) for UE symptoms on the right (+) response to traction, with good alleviation of pain (+) Bakody sign Informed Consent/Education: Patient instructed in purpose of PT consult and plan of care. Treatment: Initial Evaluation Therapeutic Activities (02924e3): Instructed in safe transfers with log roll technique Provided with OTD traction unit and instructed in use: 6-10# of pressure, 20 minute intervals, 2-3x/day Provided with cervical collar for use as needed for pain relief Applied gentle cervical traction with nearly complete alleviation of UE pain Assessment: Patient is referred to physical therapy services with the diagnosis of right shoulder pain. Patient presents with clinical signs and symptoms consistent with cervical radiculopathy with severe pain but without associated motor deficit. He has had a brief course of steroids without significant benefit, however I do feel he'd benefit from a second trial due to the severity of his pain and likely inflammatory nature of his symptoms, if referring MD is in agreement. He responded favorably to traction, and was provided with a home unit for symptomatic relief. He has a standing order for outpatient PT, which will be arranged as soon as possible. He currently demonstrates the following impairment level findings: 1. decreased cervical ROM 2. pain in C5-6 distribution 3. pain exacerbation in nerve root compression positions Impairments are contributing to the following functional limitations: 1. unable to tolerate sitting/standing 2. pain with bed mobility and transfers Patient is assessed as Moderate 42539 complexity based on the following: History: Curly is a 32 year old male presenting with insidious onset RUE pain, with s/s consistent with C5-6 cervical radiculopathy. No signficant complicating factors. Examination: functional limitations as above Presentation: evolving Decision Making: moderate complexity Plan of Care/Treatment Plan: Appropriate for d/c home once deemed medically stable. Recommend consideration of course of steroids. Try OTD traction and use of cervical collar as above, and follow up with outpatient PT. DISCHARGE RECOMMENDATIONS: Home with outpatient PT TREATMENT CODE/TIME: [id number] ([id number], [id number]) Skyla Teague, PT, DPT [facility]
[2022-11-14] MEDS: predniSONE 20 MG TAB 40 MG PO (11:56)
== END 2022-11-14 12:00 | disposition home or self-care (01) ==
PROVIDERS: Emergency Provider Emergency Medicine; PCP Family Medicine
DX: M25.511 Pain in right shoulder (principal); G89.29 Other chronic pain
CPT/HCPCS: 97162; 97530; 99283; 71046; J7512

== ENCOUNTER → 2022-11-27 03:01 | Outpatient (CLI) | payer OTHER, SELFPAY ==
--- NOTE | 2022-11-27 | DI.MRI_ITS ---
Exam(s) MR UPPER JOINT RT WO EXAM: MR UPPER JOINT RT WO CLINICAL HISTORY: PAIN RT [id number] ? ROTATOR CUFF INJURY TECHNIQUE: Multiplanar multisequence MRI of the shoulder was performed. COMPARISON: CR XR SHOULDER RT COMPLETE 2+V from 10/17/2022 CR XR CHEST 2V PA LATERAL from 11/14/2022 FINDINGS: MARROW:There is no evidence of fracture, Hill-Sachs deformity, nor ominous osseous lesions. ROTATOR CUFF MECHANISM: AC JOINT/ACROMIUM: AC joint appears unremarkable.. There is no evidence of os acromiale. Supraspinatus: Intact. No evidence of tear nor muscle atrophy. Infraspinatus: Intact. No evidence of tear nor muscle atrophy. Teres Minor: Intact. No evidence of tear nor muscle atrophy. Subscapularis/anterior cuff: Intact. No abnormal signal at the level of the multipennate insertional fibers. No significant tear nor atrophy. BICEPS TENDON: Normally position in the intertubercular groove. No evidence of tear. LABRUM: There is no abnormal signal in the superior labrum posterior to the biceps insertion site. P osterior labrum appears unremarkable as does the inferior labrum.. There is a small focus of signal abnormality in the anterosuperior labrum with an adjacent cyst measuring 5 by 5 by 6 mm, this abuttin g the superior aspect of the subscapularis insertional tendons. This is probably a paralabral cyst. The inferior aspect of the anterior labrum appears intact and there is no evidence of Bankart-type i njury nor periosteal stripping. The inferior glenohumeral ligament is intact. GLENOHUMERAL JOINT: No joint effusion nor obvious loose intra-articular bodies. No chondral defects. No osteophytes. No degenerative subarticular cysts. QUADRILATERAL SPACE: No evidence of mass in the region of the axillary nerve and dorsal circumflex hu meral vessels. Visualized triceps muscle at this level appears unremarkable. IMPRESSION: 1. There is no evidence of rotator cuff pathology and no significant impingement in the subacromial s pace. AC joint appears unremarkable. 2. The main finding here is what appears to be a tear in the anterosuperior labrum with an adjacent 5 x 6 x 5 mm paralabral cyst. There is no significant signal abnormality in the superior labrum poste rior to the biceps insertion. Biceps tendon appears intact and not detached from the anterosuperior labrum. It is also not displaced from the intertubercular groove. There is no tear of the posterior labrum nor of the inferior labrum. 3. There are no degenerative changes in the glenohumeral joint nor evidence of joint effusion. No lo ose intra-articular bodies. No intraosseous edema. No osteophytes. DATA REPOSITORY:
== END ==
PROVIDERS: PCP Family Medicine; Visit Provider Physician Assistant Medical
DX: M25.511 Pain in right shoulder (principal)
CPT/HCPCS: 73221

== ENCOUNTER 2022-12-08 15:51 | Outpatient (REF) | payer OTHER, SELFPAY ==
[2022-12-08 10:32] LABS: Source Nasal/Nares
[2022-12-08 11:09] LABS: COVID-19 PCR Negative (Negative)
== END 2022-12-08 15:52 | disposition home or self-care (01) ==
LOC: LBN 15:51
PROVIDERS: PCP Family Medicine; Visit Provider Obstetrics & Gynecology
DX: Z11.52 Encounter for screening for COVID-19 (principal)
CPT/HCPCS: 87635

== ENCOUNTER 2022-12-15 11:34 | Outpatient (REF) | payer OTHER, SELFPAY ==
[2022-12-15 12:57] LABS: ALT 62 U/L (16-63); AST 24 U/L (15-37); Albumin 4.5 g/dL (3.4-5.0); Alkaline Phosphatase 162 U/L (46-116); Anion Gap 11.2 mmol/L (3-11); BUN 13 mg/dL (7-18); Bilirubin, Total 0.7 mg/dL (0.2-1.0); CO2 28.8 mmol/L (21.0-32.0); Calculated LDL 182 mg/dL (<100); Chloride 98 mmol/L (98-107); Cholesterol 270 mg/dL (<200); Estimated GFR 101.92 (mL/min/1.73m2); Glucose 100 mg/dL (74-106); HDL Cholesterol 42 mg/dL (40-60); Potassium 3.3 mmol/L (3.5-5.1); Sodium 138 mmol/L (136-145); Total Protein 9.2 g/dL (6.4-8.2); Triglyceride 230 mg/dL (<150)
[2022-12-15 13:39] LABS: Absolute Basophil Count 0.07 10^3/uL (0.0-0.2); Absolute Eosinophil Count 0.06 10^3/uL (0.0-0.7); Absolute Monocyte Count 0.73 10^3/uL (0.1-0.8); Basophils % 0.5; Eosinophils % 0.4; HCT 46.5 % (40.0-50.0); HGB 15.7 g/dL (13.5-17.5); Immature Grans % 0.7; Lymphocytes % 15.2; MCH 29.5 pg (27.0-33.0); MCHC 33.8 % (32.0-36.0); MCV 87 fL (80-95); MPV 9.8 fL (8.0-11.0); Monocytes % 5.3; Neutrophils % 77.9; Platelet Count 383 10^3/uL (130-400); RBC 5.32 10^6/uL (4.36-5.78); RDW 12.7 % (11.8-14.1); RDW-SD 40.6 fL
[2022-12-15 13:47] LABS: Absolute Neutrophil Count 10.75 10^3/uL (1.2-6.7)
[2022-12-15 14:09] LABS: Hemoglobin A1C 5.3 % (<5.7)
[2022-12-16 10:12] LABS: Hepatitis B Surface Ag Negative (Negative)
[2022-12-16 10:40] LABS: HIV-1/2 Ag & Ab Screen Negative (Negative)
== END 2022-12-15 11:35 | disposition home or self-care (01) ==
LOC: NCHCN 11:34
PROVIDERS: PCP Family Medicine; Visit Provider Family Medicine
DX: Z20.6 Contact with and (suspected) exposure to human immunodeficiency virus [HIV] (principal); Z13.9 Encounter for screening, unspecified; D72.829 Elevated white blood cell count, unspecified
CPT/HCPCS: 80053; 80061; 87340; 87389; 83036; 85025

== ENCOUNTER 2023-06-18 15:24 | Outpatient (CLI) | payer OTHER, SELFPAY ==
[2023-06-18 16:01] LABS: Hemoglobin A1C 5.2 % (<5.7)
[2023-06-18 21:37] LABS: Vitamin D 25 Total 18.4 ng/mL (30-100)
[2023-06-18 21:49] LABS: ALT 76 U/L (16-63); AST 31 U/L (15-37); Albumin 4.7 g/dL (3.4-5.0); Alkaline Phosphatase 135 U/L (46-116); Anion Gap 9.6 mmol/L (3-11); BUN 13 mg/dL (7-18); Bilirubin, Total 0.5 mg/dL (0.2-1.0); CO2 31.4 mmol/L (21.0-32.0); CREATININE 1.2 mg/dL (0.70-1.30); Calcium 9.8 mg/dL (8.5-10.1); Calculated LDL 176 mg/dL (<100); Chloride 101 mmol/L (98-107); Cholesterol 275 mg/dL (<200); Estimated GFR 81.89 (mL/min/1.73m2); Glucose 92 mg/dL (74-106); HDL Cholesterol 41 mg/dL (40-60); Potassium 3.8 mmol/L (3.5-5.1); Sodium 142 mmol/L (136-145); TSH (W/Ref FT4) 3.81 uIU/mL (0.36-3.74); Total Protein 8.7 g/dL (6.4-8.2); Triglyceride 291 mg/dL (<150); Vitamin B12 413 pg/mL (193-986)
[2023-06-18 22:07] LABS: FREE T4 0.92 ng/dL (0.76-1.46)
[2023-06-19 19:13] LABS: HBs Antibody, Quant 588.7 mIU/mL (See Note); Hepatitis B Surface Ab Positive (See Note)
[2023-06-19 19:22] LABS: Hepatitis B Surface Ag Negative (Negative)
[2023-06-19 19:53] LABS: HIV-1/2 Ag & Ab Screen Negative (Negative); Hepatitis C Ab w Rflx HCV PCR Negative (Negative)
[2023-06-19 19:55] LABS: Hep A Total Ab w Rflx IgM Negative (Negative); Hep B Core Antibody Negative (Negative)
[2023-06-20 12:49] LABS: Chlamydia Result Negative (Negative); GC Result Negative (Negative)
[2023-06-22 11:08] LABS: Syphilis Serology (RPR) Negative (Negative)
== END 2023-06-18 15:25 | disposition home or self-care (01) ==
LOC: LBO 15:25
PROVIDERS: PCP Family Medicine; Visit Provider Nurse Practitioner Family
DX: I10 Essential (primary) hypertension (principal); Z11.3 Encounter for screening for infections with a predominantly sexual mode of transmission; E78.5 Hyperlipidemia, unspecified; E55.9 Vitamin D deficiency, unspecified; D51.3 Other dietary vitamin B12 deficiency anemia; Z18.9 Retained foreign body fragments, unspecified material
CPT/HCPCS: 36415; 80053; 80061; 82306; 86704; 86706; 86709; 86803; 87340; 87389; 87491; 87591; 82607; 83036; 84439; 84443; 86592

== ENCOUNTER 2023-12-15 14:54 | Outpatient (CLI) | payer OTHER, SELFPAY ==
--- NOTE | 2023-12-15 14:45 | RT.EKG_ITS ---
APPROVED REPORT Exam: Resting ECG Reason for Exam: High Risk Medication Patient Location: O HR:74 bpm ECG Measurements Heart Rate 74 AXIS [place] 151 P 43 QRSd 86 QRS -13 QT 364 T 17 QTc 404 Conclusion Sinus rhythm...normal P axis, V-rate 50- 99 RSR' in V1 or V2, probably normal variant...small R' only Normal Electrocardiogram
== END 2023-12-15 14:55 ==
PROVIDERS: PCP Family Medicine; Visit Provider Nurse Practitioner Family
DX: Z79.899 Other long term (current) drug therapy (principal)
CPT/HCPCS: 93005; 93010

== ENCOUNTER 2024-04-26 11:54 | Outpatient (CLI) | payer OTHER, SELFPAY ==
[2024-04-27 01:47] LABS: HIV-1/2 Ag & Ab Screen Negative (Negative)
== END 2024-04-26 11:55 | disposition home or self-care (01) ==
LOC: LBO 11:57
PROVIDERS: PCP Family Medicine; Visit Provider Nurse Practitioner Family
DX: Z20.6 Contact with and (suspected) exposure to human immunodeficiency virus [HIV] (principal); Z11.59 Encounter for screening for other viral diseases
CPT/HCPCS: 36415; 87389

== ENCOUNTER 2024-05-10 14:11 | Outpatient (CLI) | payer OTHER, SELFPAY ==
--- NOTE | 2024-05-10 | DI.RAD_ITS ---
Exam(s) XR ABDOMEN FLAT PLATE EXAM: 2D digital imaging was performed. CLINICAL HISTORY: GASTROPARESIS SYNDROME,? STOOL CONTENT,k31.84. COMPARISON: CT CT ABDOMEN PELVIS W from 12/18/[address] PELVIC W from 01/24/2022 TECHNIQUE: Supine views of the abdomen was performed. Four images were obtained. FINDINGS: LUNG BASES: Clear. BOWEL GAS PATTERN: Nondistended. There is a small to moderate amount of stool present in the ascendin g and proximal transverse colon. FREE AIR: None. CALCIFICATIONS: There is bilateral nephrolithiasis. OSSEOUS STRUCTURES: Normal for age. OTHER FINDINGS: There are surgical clips in the right upper quadrant of the abdomen consistent with p rior cholecystectomy. IMPRESSION: Small to moderate amount of stool seen in the ascending and proximal transverse colon. DATA REPOSITORY: RADIATION DOSE DELIVERED:
== END 2024-05-10 14:31 ==
LOC: DI 14:11
PROVIDERS: PCP Family Medicine; Visit Provider Nurse Practitioner Family
DX: K31.84 Gastroparesis (principal)
CPT/HCPCS: 74018

== ENCOUNTER 2024-05-24 15:46 | Outpatient (CLI) | payer OTHER, SELFPAY ==
--- NOTE | 2024-05-24 10:45 | DI.US_ITS ---
APPROVED REPORT EXAM: Comprehensive 2D, Doppler, and color-flow Echocardiogram Patient Location: Out-Patient Physiotherapy Practice Manager: Ambrosio Quezada RDCS (AE) Indications: Family history of bicuspid aortic valve Other Information Study Quality: Good Conclusion Normal left ventricular wall thickness and chamber size. Ejection fraction is 65%. Wall motion is n ormal Normal right ventricular size and function Both atria are normal in size There is no structural or hemodynamically significant valvular disease Wall motion Left Ventricle The left ventricle is normal size. Left ventricular systolic function is normal. The left ventricular ejection fraction is within the normal range. There is normal left ventricular wall thickness. There is normal LV segmental wall motion. There is no ventricular septal defect visualized. LVEF is 65%. Right Ventricle The right ventricle is normal size. The right ventricular systolic function is normal. Atria The left atrium size is normal. The right atrium size is normal. The interatrial septum is intact wit h no evidence for an atrial septal defect. Aortic Valve The aortic valve is normal in structure. Aortic valve is trileaflet. There is no aortic valvular sten osis. No aortic regurgitation is present. Mitral Valve The mitral valve is normal in structure. No evidence of mitral valve stenosis. There is no mitral fahad ve regurgitation noted. Tricuspid Valve The tricuspid valve is normal in structure. There is no tricuspid valve stenosis. Trace tricuspid reg urgitation. Pulmonic Valve The pulmonary valve is normal in structure. There is no pulmonic valvular stenosis. There is no pulmo kasia valvular regurgitation. Great Vessels The aortic root is normal in size. The ascending aorta is normal in size. Aortic arch is normal in ca liber. IVC is normal in size and collapses >50% with inspiration. Pericardium There is no pericardial effusion. 2D Dimensions IVSD d PLAX 0.82 cm M: 0.6-1.2 Ao Root d 2.39 cm M: 3.1 - 3.7 LVPW d PLAX 0.84 cm M: 0.6 - 1.2 Ao Asc Diam d 2.78 cm M: 2.6 - 3.4 LVID d PLAX 5.06 cm M: 4.2 - 5.8 LVDs 3.04 cm M: 2.5 - 4.0 LV EF Teichholz 70.4 % FS 40.03 % LV EDV (Teich) 121.7 mL LV ESV (Teich) 36.0 mL Stroke Vol Index (Teich) 42.82 M-Mode TAPSE 2.13 cm (M/F) >1.7 Auto EF LV EDV A4C 97.2 mL LV EDV A2C 38.7 mL LV EDV BP LV ESV A4C 34.5 mL LV ESV A2C 13.1 mL LV ESV BP LVEF(%) A4C 64.5 % LVEF(%) A2C 66.3 % LVEF(%) BP LV SV A4C 62.7 ml LV SV A2C 25.7 ml LV SV BP LV CO A4C 6.3 L/min LV CO A2C 2.9 L/min LV CO BP HR A4C 100.56 BPM HR A2C 111.80 BPM LV EDV Index (BP) LA Volume LA Length A4C 4.2 cm LA Length A2C 3.6 cm LA Area A4C s 8.83 cm2 LA Area A2C s 7.42 cm2 LA Vol A4C A-L 15.71 mL LA Vol A2C A-L 12.85 mL LA Vol Biplane A-L 15.3 mL LA Vol/BSA A4C A-L LA Vol/BSA A2C A-L LA Vol/BSA BP A-L 7.6 mL/m2 LA Vol A4C MOD 14.1 mL LA Vol A2C MOD 12.2 mL LA Vol BP MOD 14.1 mL RA Volume RA Area A4C 8.4 cm2 RA ESV A4C (A-L) 17.7mL RA Vol/BSA A4C A-L RA Length A4C 3.4 cm RA ESV A4C (MOD) 15.7mL LV Diastology MV E' medial 0.097 (>0.07 m/s) MV E Vmax 1.19 (0.4-1.3 m/s) MV E' lateral 0.077 (>0.1 m/s) Aortic Valve AoV Vmax 1.37 m/s LVOT Vmax 1.03 m/s AoV Peak Grad 7.6 mmHg LVOT Peak Grad 4.2 mmHg AoV Area (Vmax) 2.31 cm2 LVOT VTI 0.161 m AoV VTI 0.235 m LVOT Mean Grad 2.3 mmHg AoV Mean Alin. 1.00 m/s LVOT SV 49.72 mL AoV Mean Grad 4.5 mmHg LVOT Diam s 1.95 cm AoV Area (VTI) 2.12 cm2 AV Regurg Peak Gr. 7.56 mmHg Velocity Ratio 0.75 Pulmonary Valve PV Vmax 1.13 (0.5-1.5 m/s) RVOT Vmax 0.80 m/s PV Peak Grad 5.1 mmHg RVOT Peak Gr. 2.6 mmHg PV Mean Alin 0.80 m/s RVOT VTI 0.136 m PV Mean Grad 2.9 mmHg RVOT Mean Gr. 1.4 mmHg Tricuspid Valve TV S' 0.16 m/s
== END 2024-05-24 16:06 ==
LOC: DI 15:47
PROVIDERS: PCP Family Medicine; Visit Provider Nurse Practitioner Family
DX: Q23.81 Bicuspid aortic valve (principal)
CPT/HCPCS: 93306

== ENCOUNTER 2024-06-09 10:44 | Outpatient (CLI) | payer OTHER, SELFPAY ==
[2024-06-09 11:31] LABS: TSH (W/Ref FT4) 2.06 uIU/mL (0.36-3.74)
== END 2024-06-09 10:45 | disposition home or self-care (01) ==
LOC: LBO 10:44
PROVIDERS: PCP Family Medicine; Visit Provider Nurse Practitioner Family
DX: E66.01 Morbid (severe) obesity due to excess calories (principal)
CPT/HCPCS: 36415; 84443

== ENCOUNTER 2024-11-22 09:14 | Outpatient (CLI) | payer OTHER, SELFPAY ==
[2024-11-22 19:20] LABS: HIV-1/2 Ag & Ab Screen Negative (Negative)
[2024-11-23 11:54] LABS: Syphilis Serology (RPR) Negative (Negative)
== END 2024-11-22 09:15 | disposition home or self-care (01) ==
LOC: LBO 09:16
PROVIDERS: PCP Family Medicine; Visit Provider Nurse Practitioner Family
DX: Z20.6 Contact with and (suspected) exposure to human immunodeficiency virus [HIV] (principal)
CPT/HCPCS: 36415; 87389; 86592

== ENCOUNTER 2024-11-26 11:18 | Emergency (ER) | payer OTHER, SELFPAY ==
[2024-11-26 11:20] VITALS: BP 117/85; PULSE 115; RESP 16; TEMP 36.7; O2SAT 98
--- NOTE | 2024-11-26 11:30 | DI.RAD_ITS ---
Exam(s) XR FOOT LT COMPLETE EXAM: XR FOOT LT COMPLETE CLINICAL HISTORY: Mid foot pain. TECHNIQUE: 2D digital imaging was performed. COMPARISON: CR XR TOE LT GREAT from 05/16/2022 FINDINGS: 3 views No evidence of fracture nor diastasis at the level of the Lisfranc joint. Bone density normal. No osseous lesions nor erosions. There is soft tissue swelling medial to the head of the great toe metatarsal. There is no radiopaque foreign body at this level. However, on the oblique view there is a subtle suggestion of a fracture of the medial aspect of the head of the great toe, nondisplaced. This is only seen on the oblique view. The sesamoid bones subjacent to the great toe metatarsal head appear unremarkable. Other bones and articulations appear unremarkable. IMPRESSION: There is significant soft tissue swelling adjacent to the medial aspect of the head of the great toe metatarsal. There is no radiopaque foreign body. However, there is a cortical disruption in the subjacent medial aspect of the head of the great toe metatarsal. This is either a small erosion or small nondisplaced fracture. Correlation with site of tenderness is recommended. The actual great toe metatarsophalangeal joint itself appears unremarkable. DATA REPOSITORY: RADIATION DOSE DELIVERED:
--- NOTE | 2024-11-26 11:42 | W.ED.GENAD ---
Discharge Plan Disposition Patient Disposition: Home Condition: Stable Discharge Details Clinical Impression: Plantar fasciitis of right foot Primary Care Provider: Robi Guevara ED Provider: Kalyani Oliva Home Meds and New Rx's Prescriptions: Continued cabotegravir 600 mg/3 mL (200 mg/mL) suspension,extended release 600 mg IM [id number] lisdexamfetamine [Vyvanse] 40 mg capsule 50 mg PO DAILY metoclopramide HCl [Reglan] 10 mg tablet 10 mg PO Q6H PRN (Reason: nausea and vomiting) Qty: 7 0RF valsartan-hydrochlorothiazide 160-25 mg tablet 1 tab PO DAILY Patient Comments: TAKE ONE TABLET BY MOUTH EVERY DAY glycopyrrolate 1 mg tablet 1 mg PO DAILY Patient Comments: TAKE ONE TABLET BY MOUTH EVERY DAY FOR hyperhidrosis allopurinol 100 mg tablet 300 mg PO DAILY Patient Comments: 07/18/22 Pt stated new RX; hasnt started yet. fluoxetine 10 mg capsule 20 mg PO DAILY Discharge Instructions Instructions: Heel pain caused by plantar fasciitis, Plantar Fasciitis Exercises, Walking Boot Additional Instructions: At this time no obvious fracture or bony abnormality noted on the x-rays. If there is anything different on the official report we will give you a call. Rest, ice, compression elevation when sitting or lying down. Wear the walking boot as needed for comfort. Please take Tylenol or Ibuprofen with food every 4-6 hours as needed for pain and swelling. Follow up with primary care provider in 3-5 days. Return to ED sooner if any worsening or concerns. Referrals: Robi Guevara [Primary Care Provider, Medicine] - 2 weeks Referral Note: ER follow-up, call for an appointment Discharge Data Discharge Date/Time-TO BE ENTERED AT DEPARTURE: 11/26/24 13:05 HPI General Mode of arrival: ambulatory. Date/Time Provider Initiated Documentation: 11/26/24 11:26. Limitations to Documentation: no limitations. Information obtained by: patient, RN notes reviewed and old records reviewed. HPI Narrative: 44-year-old male presents to the ER with left foot pain which he woke up with this morning. He reports increases with ambulation describes a lower plantar surface midfoot pain. Radiates up into his ankle. No known injuries does have a history of gout. Does not have any pain to the great toe joint. No significant deformity erythema or swelling noted. Distal CMS intact. Related Data Home Medications ?Medication ?Instructions ?Recorded ?Confirmed lisdexamfetamine 40 mg capsule 50 mg PO DAILY 09/20/19 11/26/24 (Vyvanse) metoclopramide HCl 10 mg tablet 10 mg PO Q6H PRN nausea and 01/25/22 11/26/24 (Reglan) vomiting #7 tabs cabotegravir 600 mg/3 mL (200 600 mg IM [id number] 01/29/22 11/26/24 mg/mL) IM suspension,extended release allopurinol 100 mg tablet 300 mg PO DAILY 12/03/22 11/26/24 fluoxetine 10 mg capsule 20 mg PO DAILY 12/03/22 11/26/24 glycopyrrolate 1 mg tablet 1 mg PO DAILY 11/26/24 11/26/24 valsartan 160 1 tab PO DAILY 11/26/24 11/26/24 mg-hydrochlorothiazide 25 mg tablet Previous Rx's ?Medication ?Instructions ?Recorded metoclopramide HCl 10 mg tablet 10 mg PO Q6H PRN nausea and 01/25/22 (Reglan) vomiting #7 tabs Allergies Allergy/AdvReac Type Severity Reaction Status Date / Time emtricitabine (From Truvada) Allergy Intermediate N/V x2 Verified 11/26/24 11:23 days; migraine, throat swelling metoprolol AdvReac Severe severe Verified 11/26/24 11:23 body aches hydrocodone bitartrate (From AdvReac Intermediate Nausea Verified 11/26/24 11:23 Vicodin) oxycodone HCl (From Percocet) AdvReac Intermediate Nausea Verified 11/26/24 11:23 tenofovir (From Truvada) AdvReac Intermediate N/V x2 Verified 11/26/24 11:23 days; migraine General Stated Complaint: Orthopedic AILYN: 3 Exam Extrem Right lower extremity: normal to inspection Left lower extremity: foot Details: normal capillary refill, normal to inspection and tenderness; no unusual warmth, edema noted, no crepitus, no foreign bodies and no puncture wound Course Vital Signs Vital signs: Vital Signs Temperature 36.7 C 11/26/24 11:20 Pulse 115 H 11/26/24 11:20 Respiratory Rate 16 11/26/24 11:20 Blood Pressure 117/85 11/26/24 11:20 Pulse Oximetry 98 11/26/24 11:20 Temperature 36.7 C 11/26/24 11:20 Temperature Source Oral 11/26/24 11:20 Pulse 115 H 11/26/24 11:20 Respiratory Rate 16 11/26/24 11:20 Blood Pressure 117/85 11/26/24 11:20 Blood Pressure Position Sitting 11/26/24 11:20 Pulse Oximetry 98 11/26/24 11:20 Oxygen Delivery Method Room Air 11/26/24 11:20 Oxygen Flow Rate 0 11/26/24 11:20 Pain Level 7 11/26/24 11:20 Medical Decision Making 44-year-old male presents to the ER with left foot pain which he woke up with this morning. He reports increases with ambulation describes a lower plantar surface midfoot pain. Radiates up into his ankle. No known injuries does have a history of gout. Does not have any pain to the great toe joint. No significant deformity erythema or swelling noted. Distal CMS intact. No obvious fracture noted on the preliminary x-ray, awaiting official radiology report. Will place patient in a short walking boot discharge with [facility] procedures and home care. Differential diagnose includes not limited to sprain, plantar fasciitis, gout, occult fracture. This text was generated using [employer] dictation system, please disregard any oddities of phrase or misspellings. PFSH All Active Problems (Updated 11/26/24 @ 12:54 by Kalyani Oliva NP) Plantar fasciitis of right foot (Acute) Paralabral cyst of right shoulder (Acute) Cervical radiculopathy (Acute) Encounter for screening for other viral diseases (Acute) Nausea & vomiting (Acute) Gastroparesis (Acute) Medical History (Updated 11/26/24 @ 12:54 by Kalyani Oliva NP) Pilonidal cyst LIZBETH (obstructive sleep apnea) ran out of supplies for CPAP Shingles Nonalcoholic fatty liver disease ADHD Left inguinal hernia Renal insufficiency Depression with anxiety Long history; Fluoxetine; Wellbutrin (helpful 2012), Buspar; episodes of panice with Clonazepam RX'ed long-term historically and uses very seldom per medical records Hypertension Lisinopril 10mg (used to also be on Chlorthalidone 50mg daily) Heartburn Long-term Pantoprazole, switched to safer H2 rishabh 03/2019 Gastroparesis RX Metoclopremide 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 Cameron Has been discharged from oncology services as of 2021. IBS (irritable bowel syndrome) Dx'ed ~2011; Colestid helpful for diarrhea; Levsin & Bentyl used 2014 Carpal tunnel syndrome on both sides (10/03/15) s/p b/l release which resolved issue Migraine without aura and without status migrainosus, not intractable (10/03/15) Surgical History S/P inguinal hernia repair using synthetic patch (~10/19/19) left History of colonoscopy (~10/2017) Dr. Al[place] in [place]--recalled for age 49; normal appearing mucosa all biopsies (random) benign H/O esophagogastroduodenoscopy (~02/2013) +Mild gastritis, normal mucosa History of colonoscopy (~02/2013) ~2013--normal mucosa, but +internal hemorrhoids History of tonsillectomy (~02/2012) History of cholecystectomy (~02/2007) History of appendectomy (~06/2014) Open H/O carpal tunnel repair (~02/2015) B/L Family History Father , Black lung on certificate; also with significant addiction Substance abuse Anxiety Depression Hypertension Paternal Grandfather Diabetes Alcohol abuse Mother Anxiety Depression Hypertension Maternal Grandfather Alcohol abuse Maternal Grandmother Alcohol abuse Heart disease Pancreatic cancer Paternal Grandmother Alcohol abuse Social History Smoking/Tobacco Use Status: Never Smoking risk assessment performed?: Yes Alcohol Intake: current Alcohol Intake frequency: holidays/special occasions only Drug use: Daily Substance use type: marijuana Adopted: No Caregiver/Support person: No Foster care: No Household members: family Housing: house Communication Needs: None Do you need help understanding health information?: Rarely 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
[2024-11-26 13:04] VITALS: BP 135/88; PULSE 92; RESP 18; O2SAT 99
--- NOTE | 2024-11-26 14:23 | DI.VRAD_ITS ---
PROCEDURE INFORMATION: Exam: XR Left Foot Exam date and time: 11/26/2024 12:04 PM Age: 34 years old Clinical indication: Pain; Foot; Left TECHNIQUE: Imaging protocol: Radiologic exam of the left foot. Views: 3 or more views. COMPARISON: CR XR TOE LT GREAT 16/05/2022 11:14 FINDINGS: Bones/joints: Normal. Soft tissues: Normal. IMPRESSION: No acute bony findings. If clinical symptoms persist recommend followup film in 7-10 days. Dictated and Authenticated by: Samantha Jeter MD. Orderin Pj Auguste MD
== END 2024-11-26 13:05 | disposition home or self-care (01) ==
PROVIDERS: Emergency Provider Registered Nurse Emergency; PCP Family Medicine
DX: M72.2 Plantar fascial fibromatosis (principal)
CPT/HCPCS: 99283 ×2; 73630

== ENCOUNTER 2024-11-27 06:34 | Emergency (ER) | payer OTHER, SELFPAY ==
[2024-11-27 06:38] VITALS: BP 150/101; PULSE 87; RESP 18; TEMP 36.8; O2SAT 100
--- NOTE | 2024-11-27 06:59 | W.ED.GENAD ---
Discharge Plan Disposition Patient Disposition: Home Condition: Stable Discharge Details Clinical Impression: Gout attack Primary Care Provider: Robi Guevara ED Provider: Curly Velez Home Meds and New Rx's Prescriptions: New prednisone 20 mg tablet See Rx Instructions .ROUTE .COMPLEX Qty: 18 0RF Rx Instructions: Take 60 mg for 3 days, then 40 mg for 3 days, then 20 mg for 3 days. Continued cabotegravir 600 mg/3 mL (200 mg/mL) suspension,extended release 600 mg IM [id number] lisdexamfetamine [Vyvanse] 40 mg capsule 50 mg PO DAILY metoclopramide HCl [Reglan] 10 mg tablet 10 mg PO Q6H PRN (Reason: nausea and vomiting) Qty: 7 0RF valsartan-hydrochlorothiazide 160-25 mg tablet 1 tab PO DAILY Patient Comments: TAKE ONE TABLET BY MOUTH EVERY DAY glycopyrrolate 1 mg tablet 1 mg PO DAILY Patient Comments: TAKE ONE TABLET BY MOUTH EVERY DAY FOR hyperhidrosis allopurinol 100 mg tablet 300 mg PO DAILY Patient Comments: 07/18/22 Pt stated new RX; hasnt started yet. fluoxetine 10 mg capsule 20 mg PO DAILY HPI General Date/Time Provider Initiated Documentation: 11/27/24 06:52. Limitations to Documentation: no limitations. Information obtained by: patient. History of Present Illness 34 year old M presents to the emergency department with the chief complaint of left foot/toe pain, described as moderate, Quality is described as aching, and is localized to the left and lower extremity. Patient reports no radiation. Patient started experiencing this day(s) and it has been constant. Rest improves symptom(s), Movement worsens symptoms . Patient notes denies fever/chills. Related Data Home Medications ?Medication ?Instructions ?Recorded ?Confirmed lisdexamfetamine 40 mg capsule 50 mg PO DAILY 09/20/19 11/27/24 (Vyvanse) metoclopramide HCl 10 mg tablet 10 mg PO Q6H PRN nausea and 01/25/22 11/27/24 (Reglan) vomiting #7 tabs cabotegravir 600 mg/3 mL (200 600 mg IM [id number] 01/29/22 11/27/24 mg/mL) IM suspension,extended release allopurinol 100 mg tablet 300 mg PO DAILY 12/03/22 11/27/24 fluoxetine 10 mg capsule 20 mg PO DAILY 12/03/22 11/27/24 glycopyrrolate 1 mg tablet 1 mg PO DAILY 11/26/24 11/27/24 valsartan 160 1 tab PO DAILY 11/26/24 11/27/24 mg-hydrochlorothiazide 25 mg tablet prednisone 20 mg tablet See Rx Instructions .Route 11/27/24 .COMPLEX #18 tabs Previous Rx's ?Medication ?Instructions ?Recorded metoclopramide HCl 10 mg tablet 10 mg PO Q6H PRN nausea and 01/25/22 (Reglan) vomiting #7 tabs prednisone 20 mg tablet See Rx Instructions .Route 11/27/24 .COMPLEX #18 tabs Allergies Allergy/AdvReac Type Severity Reaction Status Date / Time emtricitabine (From Truvada) Allergy Intermediate N/V x2 Verified 11/27/24 06:41 days; migraine, throat swelling metoprolol AdvReac Severe severe Verified 11/27/24 06:41 body aches hydrocodone bitartrate (From AdvReac Intermediate Nausea Verified 11/27/24 06:41 Vicodin) oxycodone HCl (From Percocet) AdvReac Intermediate Nausea Verified 11/27/24 06:41 tenofovir (From Truvada) AdvReac Intermediate N/V x2 Verified 11/27/24 06:41 days; migraine General Stated Complaint: Orthopedic AILYN: 3 Review of Systems All systems reviewed & are unremarkable except as noted in HPI and below Constitutional Constitutional: Denies chills and Denies fever(s) Musculoskeletal Musculoskeletal: Reports arthralgias Exam Const General: no acute distress Orientation: alert [facility] Head: normal to inspection General nose exam: external nose normal Mouth: moist mucous membranes Neck Neck: normal visual inspection Resp Effort & Inspection: normal respiratory effort and able to speak in complete sentences Cardio Rate: regular rate Neuro General: patient alert and patient oriented x3 Extrem General: normal to inspection Psych Mental Status: mental status grossly normal Course Vital Signs Vital signs: Vital Signs Temperature 36.8 C 11/27/24 06:38 Pulse 87 11/27/24 06:38 Respiratory Rate 18 11/27/24 06:38 Blood Pressure 150/101 H 11/27/24 06:38 Pulse Oximetry 100 11/27/24 06:38 Temperature 36.8 C 11/27/24 06:38 Pulse 87 11/27/24 06:38 Respiratory Rate 18 11/27/24 06:38 Blood Pressure 150/101 H 11/27/24 06:38 Pulse Oximetry 100 11/27/24 06:38 Pain Level 8 11/27/24 06:38 Medical Decision Making 34-year-old male who states he has a history of gout comes in with pain at the base of the left big toe similar to prior gout flares. He was seen yesterday for pain in his left foot but states that was on the bottom of his foot which has not typical for his gout flares but then the pain finally subsided in the left big toe. Denies any falls or trauma. He had x-rays yesterday that were negative. No fevers or chills. He has tenderness of the left big toe without erythema or warmth. He is able to range the toe. There is no discoloration of the toe. Given the location of the pain and his history I suspect gout flare. He says that steroids have worked in the past. Will start him on prednisone taper. He will follow-up with his PCP if not improving and return precautions given Differential Diagnosis Differential Diagnosis: gout, arthritis PFSH All Active Problems (Updated 11/27/24 @ 07:03 by Curly Velez MD) Gout attack (Acute) Plantar fasciitis of right foot (Acute) Paralabral cyst of right shoulder (Acute) Cervical radiculopathy (Acute) Encounter for screening for other viral diseases (Acute) Nausea & vomiting (Acute) Gastroparesis (Acute) Medical History (Updated 11/27/24 @ 07:03 by Curly Velez MD) Pilonidal cyst LIZBETH (obstructive sleep apnea) ran out of supplies for CPAP Shingles Nonalcoholic fatty liver disease ADHD Left inguinal hernia Renal insufficiency Depression with anxiety Long history; Fluoxetine; Wellbutrin (helpful 2012), Buspar; episodes of panice with Clonazepam RX'ed long-term historically and uses very seldom per medical records Hypertension Lisinopril 10mg (used to also be on Chlorthalidone 50mg daily) Heartburn Long-term Pantoprazole, switched to safer H2 rishabh 03/2019 Gastroparesis RX Metoclopremide 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 Cameron Has been discharged from oncology services as of 2021. IBS (irritable bowel syndrome) Dx'ed ~2011; Colestid helpful for diarrhea; Levsin & Bentyl used 2014 Carpal tunnel syndrome on both sides (10/03/15) s/p b/l release which resolved issue Migraine without aura and without status migrainosus, not intractable (10/03/15) Surgical History S/P inguinal hernia repair using synthetic patch (~10/19/19) left History of colonoscopy (~10/2017) Dr. Alva in [place]--recalled for age 49; normal appearing mucosa all biopsies (random) benign H/O esophagogastroduodenoscopy (~02/2013) +Mild gastritis, normal mucosa History of colonoscopy (~02/2013) ~2013--normal mucosa, but +internal hemorrhoids History of tonsillectomy (~02/2012) History of cholecystectomy (~02/2007) History of appendectomy (~06/2014) Open H/O carpal tunnel repair (~02/2015) B/L Family History Father , Black lung on certificate; also with significant addiction Substance abuse Anxiety Depression Hypertension Paternal Grandfather Diabetes Alcohol abuse Mother Anxiety Depression Hypertension Maternal Grandfather Alcohol abuse Maternal Grandmother Alcohol abuse Heart disease Pancreatic cancer Paternal Grandmother Alcohol abuse Social History Smoking/Tobacco Use Status: Never Smoking risk assessment performed?: Yes Alcohol Intake: current Alcohol Intake frequency: holidays/special occasions only Drug use: Daily Substance use type: marijuana Adopted: No Caregiver/Support person: No Foster care: No Household members: family Housing: house Communication Needs: None Do you need help understanding health information?: Rarely 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
[2024-11-27] MEDS: predniSONE 20 MG TAB 60 MG PO (07:21)
== END 2024-11-27 07:25 | disposition home or self-care (01) ==
PROVIDERS: Emergency Provider Emergency Medicine; PCP Family Medicine
DX: M10.072 Idiopathic gout, left ankle and foot (principal)
CPT/HCPCS: 99283; J7512